=== PATIENT | female | born 1940 | race Two or more races ===

== ENCOUNTER 2019-06-17 19:41 | Inpatient (IN) | payer OTHER ==
[2019-06-17] MEDS ORDERED: dilTIAZem HCL 50 MG/10 ML - 10 ML VIAL IVPUSH ONE ×2 (20:06→20:26)
[2019-06-17] MEDS ORDERED: LACTATED RINGERS SOLUTION 1000 ML INFUS.BAG IV ONE (20:07)
--- NOTE | 2019-06-17 20:07 | PDOC ---
Attending Attestation - Resident Resident Name: Ezequiel Jaimes - ED Attending Attestation I have performed the following: I have examined & evaluated the patient, The case was reviewed & discussed with the resident, I agree w/resident's findings & plan - HPI HPI: 06/17/19 23:41 see resident hpi - Physicial Exam PE: 06/17/19 23:42 agree with resident exam - Critical Care Time Total Critical Care Time: 90 Critical Care Statement: The care of this patient involved high complexity decision making to prevent further life threatening deterioration of the patient 's condition and/or to evaluate & treat vital organ system(s) failure or risk of failure. - Medical Decision Making 06/17/19 23:42 79 yo female with sob, arrives in AF with RVR patient given Cardizem 15 mg prior to arrival with little effect Additional bolus of 15 mg was given upon arrival to the emergency department due to persistently elevated rate, patient had momentary decrease to approximately 80 bpm with decreased blood pressure of 88 systolic A small fluid bolus of 250 mL was given with rapid return to normal blood pressure chest x-barb well as CTA of the chest were performed which showedcongestive changes right side much more significant on the left with pleural effusions present There are no other indicators to suggest pneumoniaBNP is elevated Patient currently on a Cardizem drip at 5 mg an hour, Lasix 40 mg given IV pushfor gentle diuresis Patient currently on BiPAP due to increased work of breathing She is clinically improved though still somewhat labored Consult called to the ICU where patient will be admitted for further management Her family has been at the bedside and understands and agrees with the plan 06/17/19 23:42
[2019-06-17] MEDS ORDERED: dilTIAZem HCL 125 MG/25 ML - 25 ML VIAL ONE (20:10)
[2019-06-17] MEDS ORDERED: LACTATED RINGERS SOLUTION 1,000 ML/1,000 ML INFUS.BAG IV SCH (20:30)
[2019-06-17] MEDS ORDERED: methylPREDNISolone NA SUCC 125 MG/2 ML VIAL ONE (20:42)
[2019-06-17 20:54] LABS: BASO % 1.1 % (0-2.0); EOS % 2.1 % (0-4.5); HEMATOCRIT 37.4 % (32.4-45.2); HEMOGLOBIN 12.3 GM/dL (10.7-15.3); MCH 31.2 pg (25.7-33.7); MCHC 32.9 g/dl (32.0-36.0); MEAN CELL VOLUME 94.8 fl (80-96); MEAN PLT VOLUME 8.4 fl (7.5-11.1); MONO % 14.9 % (3.8-10.2); NEUT % 49.9 % (42.8-82.8); PLATELET COUNT 233 K/MM3 (134-434); RBC 3.95 M/mm3 (3.60-5.2); RDW 14.2 % (11.6-15.6); WHITE BLOOD COUNT 6.6 K/mm3 (4.0-10.0)
[2019-06-17] MEDS: DILTIAZEM INJECTION 125 MG in SODIUM CHLORIDE 100 ML IVPB SCH (20:56)
[2019-06-17] MEDS ORDERED: LEVALBUTEROL HCL 0.63 MG/3 ML VIAL.NEB. IH ONE (20:57)
[2019-06-17 21:19] LABS: MAGNESIUM 1.9 mg/dL (1.8-2.4); PHOSPHOROUS 2.8 mg/dL (2.5-4.9)
--- NOTE | 2019-06-17 21:20 | PDOC ---
History of Present Illness - General Chief Complaint: Shortness of Breath Stated Complaint: SHORTNESS OF BREATH Time Seen by Provider: 06/17/19 20:01 History Source: Patient, Family (Son, daughter, and grand daughter at bedside.) Exam Limitations: No Limitations - History of Present Illness Initial Comments: HPI: 79 y/o female presenting to [facility] ER complaining of shortness of breath and back pain. EMS reports the pt was found to be in a-fib with RVR. Was given 15mg of Diltiazem enroute with little improvement in her symptoms. History obtained from pt and multiple family members at bedside. Report the pt has been short of breath for the past month. Was prescribed an Albuterol inhaler by PCP which has not provided any relief. Denies coughing. No h/o of pulmonary pathology. Reports intermittent back pain started on Sunday. Started again today while walking to the bathroom. Denies trauma or other injury to the area. EMS was called because the pt self-reported her breathing became more difficult and the back pain became worse. Family denies known cardiac history. Has never been evaluated by a switchgear repairer Scheduled for outpatient echo later this week. Social Hx: - Tobacco: never smoker Medical Hx: - HTN - H/o DVT in right leg after knee surgery. Family believes either an IVF filter or a stent was placed in the leg. Believes occured in 2012. Review of Systems: In addition to that documented in the HPI above, the additional ROS was obtained : Constitutional- Endorses intermittent fevers over the past several days. Denies chills Head- Denies vision changes ENMT- Denies sore throat CV- Denies chest pain Resp- Endorses SOB GI- Denies vomiting or diarrhea - Denies painful urination MSK- Denies recent trauma Skin- Denies new rashes Neuro- Denies new numbness or tingling or weakness Endocrine- Denies polyuria Heme- Denies bleeding or bruising Physical Examination: Constitutional- Elderly adult female presenting with mild respiratory distress. Found semi-fowlers on hospital bed. Head- Normocephalic. No obvious external signs of trauma. Neck- Supple, trachea is midline. No JVD. Cardiovascular / Chest- Tachycardic with irregularly irregular rate and regular rhythm. No murmur, rubs, clicks, or gallops. Peripheral pulses- radial pulses full. 1+ pretibial edema bilaterally to mid shaft. Respiratory- Tachypneic with pursed lip breathing. Equal chest rise and fall. Decreased breath sounds in the right posterior field. Trace end expiratory wheezing. No rales or rhonchi. Gastrointestinal- abdomen is soft, non-tender, non-distended. Neuro- Alert and oriented x4. Moving all four extremities spontaneously. Skin- Warm, dry, and intact. Psych- Affect- appropriate. Mood- normal. MDM: *Reviewed vital signs, nursing notes, and prior visit documentation (if available). 79 y/o female presenting with rapid a-fib and SOB. Afebrile. Vitals remarkable for tachycardia to the 140s. Physical exam as described above. CXR remarkable for right sided pleural effusion with possible consolidation per ED wet read. Possible pneumonia versus acute CHF. Also ordered CTA to evaluate for possible PE given new arrhythmia. Also concerned for possible aortic dissection given back pain. Pt signed out to resident Dr. Carreno after he was verbally appraised of the pts HPI, current ED course, and plan of management. Will f/u on pending radiology and laboratory studies. Anticipate admission. Ezequiel Jaimes M.D., PGY2 Emergency Medicine Resident Past History - Past Medical History Allergies/Adverse Reactions: Allergies Allergy/AdvReac Type Severity Reaction Status Date / Time No Known Allergies Allergy Verified 06/17/19 19:42 Home Medications: Ambulatory Orders Acetaminophen [Tylenol .Regular Strength -] 650 mg PO Q6H PRN #0 tablet Pantoprazole Sodium [Protonix -] 40 mg PO BID #30 tablet.ec 06/23/13 COPD: No GI Disorders: Yes (GERD) HTN: Yes Hypercholesterolemia: Yes - Surgical History Orthopedic Surgery: (LT HIP SURGERY, LT KNEE REPLACEMENT) - Immunization History Immunization Up to Date: Yes - Psycho Social/Smoking Cessation Hx Smoking Status: No Smoking History: Never smoked Number of Cigarettes Smoked Daily: 0 Hx Alcohol Use: No Drug/Substance Use Hx: No Substance Use Type: None Hx Substance Use Treatment: No *Physical Exam - Vital Signs Last Vital Signs Temp Pulse Resp BP Pulse Ox 135 H 30 H 161/119 H 96 06/17/19 20:56 06/17/19 19:55 06/17/19 20:56 06/17/19 19:55 ED Treatment Course - LABORATORY CBC & Chemistry Diagram: 06/17/19 20:45 06/17/19 20:45 - ADDITIONAL ORDERS Additional order review: Laboratory Results 06/17/19 20:45 Phosphorus 2.8 Magnesium 1.9 06/17/19 20:45 RBC 3.95 MCV 94.8 MCHC 32.9 RDW 14.2 D MPV 8.4 Neutrophils % 49.9 Lymphocytes % 32.0 Monocytes % 14.9 H Eosinophils % 2.1 Basophils % 1.1 - RADIOLOGY Radiology Studies Ordered: Category Date Time Status CHEST CTA [CT] Stat CT Scan 06/17/19 20:26 Ordered CHEST X-RAY PORTABLE* [RAD] Stat Radiology 06/17/19 20:08 Taken - Medications Given in the ED: ED Medications Discontinued Medications Generic Name Dose Route Start Last Admin Trade Name Freq PRN Reason Stop Dose Admin Diltiazem HCl 150 mg 06/17/19 20:06 06/17/19 21:00 Cardizem Injection - IVPUSH 06/17/19 20:07 Not Given ONCE ONE Diltiazem HCl 15 mg 06/17/19 20:26 06/17/19 20:27 Cardizem Injection - IVPUSH 06/17/19 20:27 15 mg ONCE ONE Administration Lactated Ringer's 250 ml 06/17/19 20:07 06/17/19 20:27 Lactated Ringers Solution IV 06/17/19 20:08 250 ml ONCE ONE Administration Discharge - Discharge Information Problems reviewed: Yes Clinical Impression/Diagnosis: Rapid atrial fibrillation - Follow up/Referral Referrals: Ashley Calderón MD [Primary Care Provider] - - Patient Discharge Instructions - Post Discharge Activity
[2019-06-17 21:22] LABS: ALBUMIN 3.2 g/dl (3.4-5.0); BLOOD UREA NITROGEN 13.3 mg/dL (7-18); CALCIUM 9.3 mg/dL (8.5-10.1); POTASSIUM 3.6 mmol/L (3.5-5.1); TOT PROT 6.1 g/dl (6.4-8.2)
[2019-06-17] MEDS ORDERED: FUROSEMIDE 40 MG/4 ML INJECTABLE VIAL IVPUSH ONE (22:47)
--- NOTE | 2019-06-17 23:41 | PDOC ---
*Physical Exam - Vital Signs Last Vital Signs Temp Pulse Resp BP Pulse Ox 129 H 30 H 110/83 100 06/17/19 22:45 06/17/19 19:55 06/17/19 22:28 06/17/19 22:45 ED Treatment Course - LABORATORY CBC & Chemistry Diagram: 06/17/19 20:45 06/17/19 20:45 - ADDITIONAL ORDERS Additional order review: Laboratory Results 06/17/19 06/17/19 06/17/19 20:45 20:45 20:45 Sodium 142 Potassium 3.6 Chloride 112 H Carbon Dioxide 20 L Anion Gap 10 BUN 13.3 Creatinine 1.0 Est GFR (CKD-EPI)AfAm 61.19 Est GFR (CKD-EPI)NonAf 52.79 Random Glucose 106 Calcium 9.3 Phosphorus 2.8 Magnesium 1.9 Total Bilirubin 1.0 AST 27 ALT 17 Alkaline Phosphatase 102 Creatine Kinase Troponin I B-Natriuretic Peptide 3211.7 H Total Protein 6.1 L Albumin 3.2 L 06/17/19 20:45 Sodium Potassium Chloride Carbon Dioxide Anion Gap BUN Creatinine Est GFR (CKD-EPI)AfAm Est GFR (CKD-EPI)NonAf Random Glucose Calcium Phosphorus Magnesium Total Bilirubin AST ALT Alkaline Phosphatase Creatine Kinase 107 Troponin I 0.02 B-Natriuretic Peptide Total Protein Albumin 06/17/19 20:45 RBC 3.95 MCV 94.8 MCHC 32.9 RDW 14.2 D MPV 8.4 Neutrophils % 49.9 Lymphocytes % 32.0 Monocytes % 14.9 H Eosinophils % 2.1 Basophils % 1.1 - Medications Given in the ED: ED Medications Discontinued Medications Generic Name Dose Route Start Last Admin Trade Name Matthew PRN Reason Stop Dose Admin Diltiazem HCl 150 mg 06/17/19 20:06 06/17/19 21:00 Cardizem Injection - IVPUSH 06/17/19 20:07 Not Given ONCE ONE Diltiazem HCl 15 mg 06/17/19 20:26 06/17/19 20:27 Cardizem Injection - IVPUSH 06/17/19 20:27 15 mg ONCE ONE Administration Lactated Ringer's 250 ml 06/17/19 20:07 06/17/19 20:27 Lactated Ringers Solution IV 06/17/19 20:08 250 ml ONCE ONE Administration Medical Decision Making - Medical Decision Making 06/17/19 23:39 Pt signed out to me by Dr. Jaimes. 79F who presents with concern for CHF exacerbation. Chest CTA negative for PE and dissection but shows fluid overload. Pt has soft BP and currently on bipap for respiratory support. MAP 65. Pt endorsed to ICU resident, Dr. Rosales, for ICU admission - accept to ICU. Microblogged for admission. 06/18/19 01:[address] Rojo for hospitalist admission. Discharge - Discharge Information Problems reviewed: Yes Clinical Impression/Diagnosis: Rapid atrial fibrillation Condition: Guarded - Admission Yes - Follow up/Referral - Patient Discharge Instructions - Post Discharge Activity
[2019-06-17] MEDS ORDERED: HEPARIN NA (PORCINE) 5,000 UNITS/ML 1ML VIAL SQ SCH (23:45)
--- NOTE | 2019-06-17 23:56 | CONSULT ---
Consultation: REQUESTING PROVIDER: Dr. Carreno CONSULT REQUEST: We have been asked to medically evaluate this patient for new onset afib w/ RVR, tachypnea, labile BP. HISTORY OF PRESENT ILLNESS: 79 y/o F with PMH HTN, HLD, s/p DVT on coumadin (after knee sx), GERD, s/p hip replacement, IVC filter, bleeding peptic ulcer dz, ?asthma, who presented for acutely worsening SOB over the past 2-3 days. Per family at bedside, over the last month she has had worsening BARTHOLOMEW. At baseline, she is able to ambulate freely using her cane. However, this weekend, she had increased SOB as well as severe, sharp back pain which caused her family to call EMS today. Was found to be in afib with RVR into 130's by EMS, pt received 15mg cardiazem without improvement. In the ER, pt received an additional push of 15mg IVP cardiazem , lasix 40mg IVP, and bolus of LR 250cc as pt BP became labile ~80/50. She was also placed on BiPAP for work of breathing, as pt was tachypnea with RR into 30' s. Received medrol 125mg x1. Pt is admitted to ICU for new onset afib with RVR, labile BP and tachypnea. During this time, pt endorses use of an albuterol inhaler without relief, given by her PMD. Otherwise, without DYER, fever, chills, chest pain or pressure or changes in urinary or bowel function. No sick contacts. No recent hospitalizations. PMH: as above PsxH: s/p L hip replacement, L knee sx, IVC filter meds: Tylenol, amlodipine, omeprazole allergies: NKDA FH: denies SH: did not work outside of home, denies alcohol, cigarette, or recreational drug use REVIEW OF SYSTEMS: +back pain +SOB PHYSICAL EXAMINATION Vital Signs 06/17/19 06/17/19 06/17/19 19:55 20:56 21:20 Pulse Rate 135 H 135 H Pulse Rate [ Left Radial] Respiratory 30 H Rate Blood Pressure 118/79 161/119 H Blood Pressure [Right Arm] O2 Sat by Pulse 96 98 Oximetry (%) 06/17/19 06/17/19 22:28 22:45 Pulse Rate 129 H Pulse Rate [ 87 Left Radial] Respiratory Rate Blood Pressure Blood Pressure 110/83 [Right Arm] O2 Sat by Pulse 99 100 Oximetry (%) GENERAL: awake and alert, on BiPAP in mild distress HEAD: Normal with no signs of trauma. EYES: Pupils equal, round and reactive to light, extraocular movements intact, sclera anicteric, conjunctiva clear. EARS, NOSE, THROAT: Ears normal, nares patent, oropharynx clear without exudates. Moist mucous membranes. NECK: Normal range of motion, supple LUNGS: +bibasilar crackles. mild accessory m usage HEART: +irreg irreg rate, no r/m/g ABDOMEN: Soft, obese, nontender, not distended, normoactive bowel sounds LOWER EXTREMITIES: 2+ pt pulses, warm, well-perfused. No calf tenderness. Trace pedal edema NEUROLOGICAL: Cranial nerves II-XII intact. PSYCHIATRIC: Cooperative. SKIN: thin skin, bruising Laboratory Results - last 24 hr 06/17/19 06/17/19 06/17/19 20:45 20:45 20:45 WBC 6.6 RBC 3.95 Hgb 12.3 Hct 37.4 MCV 94.8 MCH 31.2 MCHC 32.9 RDW 14.2 D Plt Count 233 MPV 8.4 Absolute Neuts (auto) 3.3 Neutrophils % 49.9 Lymphocytes % 32.0 Monocytes % 14.9 H Eosinophils % 2.1 Basophils % 1.1 Nucleated RBC % 0 Sodium 142 Potassium 3.6 Chloride 112 H Carbon Dioxide 20 L Anion Gap 10 BUN 13.3 Creatinine 1.0 Est GFR (CKD-EPI)AfAm 61.19 Est GFR (CKD-EPI)NonAf 52.79 Random Glucose 106 Calcium 9.3 Phosphorus Magnesium Total Bilirubin 1.0 AST 27 ALT 17 Alkaline Phosphatase 102 Creatine Kinase 107 Troponin I 0.02 B-Natriuretic Peptide Total Protein 6.1 L Albumin 3.2 L 06/17/19 20:45 B-Natriuretic Peptide 3211.7 H ABG 04/16/13 20:30 ABG pH 7.40 ABG pCO2 at Pt Temp 35.2 ABG pO2 at Pt Temp 96.8 ABG HCO3 21.2 L ABG O2 Sat (Measured) 98.3 ABG O2 Content 17.7 Chest CTA: no evidence of PE. +small to moderate R sided, v small L sided pleural effusion, mild bilateral flank subcutaneous edema suggesting vol overload. Development of bilateral upper and lower lobe opacities suggestive of infiltrates EKG: +afib w/ RVR vent rate 137ms, qtc 480ms ASSESSMENT/PLAN: 79 y/o F with PMH HTN, HLD, s/p DVT on coumadin (after knee sx), GERD, s/p hip replacement, IVC filter, bleeding peptic ulcer dz, ?asthma, who presented for acutely worsening SOB over the past 2-3 days. Pt is admitted to ICU for new onset afib with RVR, labile BP and tachypnea. #Neuro -AAO x 3 ; intact #Cardio New onset afib w/ RVR -possible 2/2 valvular issue, hyperthyroid -f/u ECHO, TSH -c/w cardiazem gtt. can give IVP if cont to be uncontrolled, should also improve w/ lasix -CHADSVASC : 6; would start on a/c however pt with hx of bleeding peptic ulcer 2012. need to weigh risks and benefits. -K>4, Mg>2 -cardio consult: Dr. Mata New onset CHF likely 2/2 afib w/ RVR -with elevated BNP ~3200, pl eff R>L -will diurese with lasix 40mg IVP qd as pt lasix naive -daily wt, i/o, na control 2g -f/u AM CXR #Pulm Tachypnea likely 2/2 new onset CHF -c/w BiPAP for work of breathing -ABG without hypercapnia or hypoxemia -less likely infectious process. without leukocytosis, afebrile, w/o cough will not give abx at this time -CTA (-) for PE #Heme hx DVT -has IVC filter -hx of bleeding peptic ulcer dz. weigh risks and benefits a/c -f/u duplex LE #F/E/N no IVF at this time as w/ CHF continue to follow lytes NPO while on BiPAP #PPX DVT: w/ hx of bleed no chemical ppx at this time #Dispo admit to ICU Dispo: We will continue to follow the patient. Thank you for this consultative opportunity. Visit type - Emergency Visit Emergency Visit: Yes ED Registration Date: 06/17/19 Care time: The patient presented to the Emergency Department on the above date and was hospitalized for further evaluation of their emergent condition. - New Patient This patient is new to me today: Yes Date on this admission: 06/18/19 - Critical Care Critical Care patient: Yes Total Critical Care Time (in minutes): 45 Critical Care Statement: The care of this patient involved high complexity decision making to prevent further life threatening deterioration of the patient 's condition and/or to evaluate & treat vital organ system(s) failure or risk of failure.
[2019-06-18 00:45] LABS: ARTERIAL BLD GAS O2 SATURATION 98.3 % (95-98); ARTERIAL BLOOD GAS BASE EXCESS -3.6 meq/l (-2-2); ARTERIAL BLOOD GAS PCO2 32.5 mmHg (35-45); ARTERIAL BLOOD GAS PO2 119 mmHg (80-100); CARBOXYHEMOGLOBIN 0.8 % (0-2)
[2019-06-18 00:46] LABS: ALLENS TEST POSITIVE
[2019-06-18] MEDS ORDERED: FUROSEMIDE 40 MG/4 ML INJECTABLE VIAL ONE (00:53)
--- NOTE | 2019-06-18 01:12 | PN ---
Teaching Attending Note Name of Resident: Yumiko Rojo ATTENDING PHYSICIAN STATEMENT I saw and evaluated the patient. I reviewed the resident's note and discussed the case with the resident. I agree with the resident's findings and plan as documented. SUBJECTIVE: Patient is an 79 year old woman with PMH of HLD, DVT after left knee surgery ( used to be on coumadin), GERD, Left hip replacement, IVC filter, Bleeding peptic ulcer disease and Asthma, who presents with worsening SOB over the past 2 -3 days. Per family at bedside, over the last month she has had worsening BARTHOLOMEW. At baseline, she is able to ambulate freely using her cane. However, this weekend, she had increased SOB as well as severe, sharp back pain which caused her family to call EMS today. Was found to be in Afib with RVR into 130's by EMS , who gave her 15mg cardiazem without improvement. In the ER, pt received an additional push of 15mg IVP cardiazem lasix 40mg IVP , and bolus of LR 250cc as her BP dropped toe ~80/50. She was also placed on BiPAP for severe distress and received Solumedrol 125mg, started on Cardiazem drip and is being transferred to the ICU. She used albuterol inhaler without relief. has had back pain. Denies headache, fever, chills, chest pain, dysuria, frequency, diarrhea or vomiting. No sick contacts, recent travel or hospitalizations. Nonsmoker. Denies alcohol abuse or illicit drug use. OBJECTIVE: Alert and on BiPAP Vital Signs Period Temp Pulse Resp BP Sys/Brown Pulse Ox Last 24 Hr 87-135 30-30 110-161/79-119 96-100 HEENT: No Jaundice, eye redness or discharge, PERRLA, EOMI. Normocephalic, atraumatic. External ears are normal and hearing is grossly intact. No nasal discharge. Neck: Supple, nontender. No palpable adenopathy or thyromegaly. No JVD Chest: Good effort. Clear to auscultation and percussion. Heart: Irregularly irregular. No S3, rub or murmur Abdomen: Not distended, soft, nontender and no HSM. No rebound or guarding. Normal bowel sounds. Ext: Peripheral pulses intact. Leg edema. Skin: Warm and dry. No petechiae, rash or ecchymosis. Neuro: Alert. Oriented x3. CN 2-12 grossly intact. Sensation grossly intact in all four extremities and DTR are symmetric. Psych: Appropriate mood and affect. Good insight. Current Medications Generic Name Dose Route Start Last Admin Trade Name Freq PRN Reason Stop Dose Admin Chlorhexidine Gluconate 1 applic 06/18/19 22:00 Hibiclens For Decolonization - TP HS SU Furosemide 40 mg 06/18/19 10:00 Lasix Injection - IVPUSH DAILY SU Diltiazem HCl 125 mg/ Sodium 125 mls @ 5 mls/hr 06/17/19 20:15 06/17/19 20:56 Chloride IVPB 5 mg/hr TITR SU 5 mls/hr Administration Protocol 5 MG/HR Mupirocin 1 applic 06/18/19 10:00 Bactroban Ointment (For Decolonization) - NS 06/23/19 09:59 BID SU Home Medications Medication Instructions Recorded Acetaminophen [Tylenol .Regular 650 mg PO Q6H PRN #0 tablet 06/23/13 Strength -] Pantoprazole Sodium [Protonix -] 40 mg PO BID #30 tablet.ec 06/23/13 Abnormal Lab Results 06/17/19 06/17/19 06/17/19 20:45 20:45 20:45 Monocytes % 14.9 H ABG pCO2 at Pt Temp ABG pO2 at Pt Temp ABG HCO3 ABG O2 Sat (Measured) ABG Base Excess Chloride 112 H Carbon Dioxide 20 L B-Natriuretic Peptide 3211.7 H Total Protein 6.1 L Albumin 3.2 L 06/18/19 00:00 Monocytes % ABG pCO2 at Pt Temp 32.5 L ABG pO2 at Pt Temp 119 H ABG HCO3 19.9 L ABG O2 Sat (Measured) 98.3 H ABG Base Excess -3.6 L Chloride Carbon Dioxide B-Natriuretic Peptide Total Protein Albumin ASSESSMENT AND PLAN: 1. New onset Afib/CHF and Acute hypoxic respiratory failure - Will diurese with IV lasix if BP improves. Will wean off BiPAP once she is effectively diuresed. Continue IV cardiazem and add PO cardiazem if BP improves. CXR shows cardiomegaly, pulmonary congestion and right lung fluffy infiltrates and pleural effusion (R>L). Chest CT didnot show pulmonary embolism; mild bliateral flank subcutaneous edema is noted. Will get ECHO, TSH, leg doppler, restrict dietary salt intake, get daily weight and consult cardiology and pulmonary. Give protonix. EKG shows Afib with a rate of [address]-T wave changes. Will repeat EKG and troponin when rate improves. [id number] score is 6. Before starting anticoagulation, will contact her cardilogist/PCP during the day to clarify the circumstances surrounding her past episode of peptic ulcer bleeding and discontinuation of coumadin. Will continue comprehensive care for all of patients comorbid conditions. 2. Hypoalbuminemia - Possibly due to combined effects of malnutrition and inflammation associated with comorbid chronic conditions. Will ensure adequate dietary protein intake and also consult lute packer or applier. 3. DVT prophylaxis - Lovenox 40 mg SQ q 24 hours. 4. Advance directives - Full code
[2019-06-18 04:12] LABS: URINE APPEARANCE CLEAR; URINE BILIRUBIN NEGATIVE (NEGATIVE); URINE COLOR YELLOW; URINE GLUCOSE (UA) NEGATIVE (NEGATIVE); URINE KETONE NEGATIVE (NEGATIVE); URINE LEUK ESTERASE NEGATIVE (NEGATIVE); URINE NITRITE NEGATIVE (NEGATIVE); URINE PROTEIN NEGATIVE (NEGATIVE); URINE UROBILINOGEN 0.2 mg/dL (0.2-1.0)
--- NOTE | 2019-06-18 04:16 | HP ---
CHIEF COMPLAINT: shortness of breath PCP: non- [facility] Dr. Calderón HISTORY OF PRESENT ILLNESS: 79 y.o. F PMH HTN, HLD, GERD, prior DVT, peptic ulcer disease, asthma presenting with progressively worsening dyspnea on exertion for 2-3 days duration. Pt says that she has never felt this SOB in the past. She tried her home nebulizers for her asthma to help with the SOB but had no improvement of symptoms. Patient also c/o sharp 9/10 back pain that has been present since . En route to the hospital EMS noted pt was in A-fib w/ RVR in the 130s and -- subsequently gave 15mg Cardizem with no change in status. In the ED, patient given another 15mg Cardizem IV, Lasix 40mg IV, medrol 125mg and LR 250mL bolus d/t BP drop to 80s/50s with improvement of symptoms. On ROS denies CP/ DYER/ fevers/ chills/ nausea/ vomiting/ urinary changes/bowel changes/ wt changes. ER course was notable for: (1) CXR: congestion R>L & pleural effusions (2) Chest CTA: No PE, no aortic aneurysm dissection (3) tachy to 135; afebrile Recent Travel: denies PAST MEDICAL HISTORY: as per HPI PAST SURGICAL HISTORY: L hip replacement, IVC filter, L knee surgery Social History: lives alone. At baseline pt is able to ambulate w/ walker. Smoking:denies Alcohol:denies Drugs: denies Allergies No Known Allergies Allergy (Verified 06/17/19 19:42) HOME MEDICATIONS: Home Medications Medication Instructions Recorded Acetaminophen [Tylenol .Regular 650 mg PO Q6H PRN #0 tablet 06/23/13 Strength -] Pantoprazole Sodium [Protonix -] 40 mg PO BID #30 tablet.ec 06/23/13 Amlodipine Besylate [Norvasc -] 10 mg PO DAILY 06/18/19 REVIEW OF SYSTEMS CONSTITUTIONAL: Absent: fever, chills, diaphoresis, generalized weakness, malaise, loss of appetite, weight change HEENT: Absent: rhinorrhea, nasal congestion, throat pain, throat swelling, difficulty swallowing, mouth swelling, ear pain, eye pain, visual changes CARDIOVASCULAR: Absent: chest pain, syncope, palpitations, irregular heart rate, lightheadedness , peripheral edema RESPIRATORY: Absent: cough, shortness of breath, dyspnea with exertion, orthopnea, wheezing, stridor, hemoptysis GASTROINTESTINAL: Absent: abdominal pain, abdominal distension, nausea, vomiting, diarrhea, constipation, melena, hematochezia GENITOURINARY: Absent: dysuria, frequency, urgency, hesitancy, hematuria, flank pain, genital pain MUSCULOSKELETAL: Absent: myalgia, arthralgia, joint swelling, back pain, neck pain SKIN: Absent: rash, itching, pallor HEMATOLOGIC/IMMUNOLOGIC: Absent: easy bleeding, easy bruising, lymphadenopathy, frequent infections ENDOCRINE: Absent: unexplained weight gain, unexplained weight loss, heat intolerance, cold intolerance NEUROLOGIC: Absent: headache, focal weakness or paresthesias, dizziness, unsteady gait, seizure, mental status changes, bladder or bowel incontinence PSYCHIATRIC: Absent: anxiety, depression, suicidal or homicidal ideation, hallucinations. PHYSICAL EXAMINATION Vital Signs - 24 hr 06/17/19 06/17/19 06/17/19 19:55 20:56 21:00 Pulse Rate 135 H 135 H Pulse Rate [ 128 H Left Radial] Respiratory 30 H 33 H Rate Blood Pressure 118/79 161/119 H Blood Pressure 161/119 H [Right Arm] O2 Sat by Pulse 96 95 Oximetry (%) 06/17/19 06/17/19 06/17/19 21:20 22:28 22:30 Pulse Rate Pulse Rate [ 87 127 H Left Radial] Respiratory 27 H Rate Blood Pressure Blood Pressure 110/83 116/72 [Right Arm] O2 Sat by Pulse 98 99 Oximetry (%) 06/17/19 06/18/19 06/18/19 22:45 01:02 02:48 Pulse Rate 129 H Pulse Rate [ 123 H Left Radial] Respiratory 30 H Rate Blood Pressure Blood Pressure 120/80 [Right Arm] O2 Sat by Pulse 100 100 100 Oximetry (%) 06/18/19 06/18/19 02:50 03:34 Pulse Rate 133 H Pulse Rate [ 133 H Left Radial] Respiratory 26 H Rate Blood Pressure Blood Pressure 115/84 [Right Arm] O2 Sat by Pulse 100 99 Oximetry (%) GENERAL: Awake, alert, and fully oriented, in no acute distress. Bipap in place. HEENT: Fundoscopy exam WNL LUNGS: Breath sounds heard through bipap sounds, no wheezing/ crackles/ rhonchi / rales appreciated on lung exam. HEART: Regular rate and rhythm, normal S1 and S2 without murmur, rub or gallop. ABDOMEN: Soft, nontender, not distended, normoactive bowel sounds, no guarding, no rebound, no masses. No hepatomegaly or splenomegaly. EXTR: 2+ pulses palpated b/l UE & LE. LE 1+ pitting edema R>L. B/l LE calf tenderness noted PSYCHIATRIC: Cooperative. Good eye contact. Appropriate mood and affect. Laboratory Results - last 24 hr 06/17/19 06/17/19 06/17/19 20:45 20:45 20:45 WBC 6.6 RBC 3.95 Hgb 12.3 Hct 37.4 MCV 94.8 MCH 31.2 MCHC 32.9 RDW 14.2 D Plt Count 233 MPV 8.4 Absolute Neuts (auto) 3.3 Neutrophils % 49.9 Lymphocytes % 32.0 Monocytes % 14.9 H Eosinophils % 2.1 Basophils % 1.1 Nucleated RBC % 0 Anticoagulation Therapy Puncture Site ABG pH ABG pCO2 at Pt Temp ABG pO2 at Pt Temp ABG HCO3 ABG O2 Sat (Measured) ABG O2 Content ABG Base Excess Adebayo Test Carboxyhemoglobin Methemoglobin O2 Delivery Device Oxygen Flow Rate Vent Mode Vent Rate Mechanical Rate Pressure Support Vent Sodium 142 Potassium 3.6 Chloride 112 H Carbon Dioxide 20 L Anion Gap 10 BUN 13.3 Creatinine 1.0 Est GFR (CKD-EPI)AfAm 61.19 Est GFR (CKD-EPI)NonAf 52.79 Random Glucose 106 Lactic Acid Calcium 9.3 Phosphorus Magnesium Total Bilirubin 1.0 AST 27 ALT 17 Alkaline Phosphatase 102 Creatine Kinase 107 Troponin I 0.02 B-Natriuretic Peptide Total Protein 6.1 L Albumin 3.2 L 06/17/19 06/17/19 06/18/19 20:45 20:45 00:00 WBC RBC Hgb Hct MCV MCH MCHC RDW Plt Count MPV Absolute Neuts (auto) Neutrophils % Lymphocytes % Monocytes % Eosinophils % Basophils % Nucleated RBC % Anticoagulation Therapy No Result Required. Puncture Site Left radial ABG pH 7.40 ABG pCO2 at Pt Temp 32.5 L ABG pO2 at Pt Temp 119 H ABG HCO3 19.9 L ABG O2 Sat (Measured) 98.3 H ABG O2 Content 16.1 ABG Base Excess -3.6 L Adebayo Test Positive Carboxyhemoglobin 0.8 Methemoglobin < 1.0 O2 Delivery Device Bipap Oxygen Flow Rate 50 Vent Mode S/t Vent Rate 18 Mechanical Rate No Result Required. Pressure Support Vent 10/4 Sodium Potassium Chloride Carbon Dioxide Anion Gap BUN Creatinine Est GFR (CKD-EPI)AfAm Est GFR (CKD-EPI)NonAf Random Glucose Lactic Acid Calcium Phosphorus 2.8 Magnesium 1.9 Total Bilirubin AST ALT Alkaline Phosphatase Creatine Kinase Troponin I B-Natriuretic Peptide 3211.7 H Total Protein Albumin 06/18/19 01:51 WBC RBC Hgb Hct MCV MCH MCHC RDW Plt Count MPV Absolute Neuts (auto) Neutrophils % Lymphocytes % Monocytes % Eosinophils % Basophils % Nucleated RBC % Anticoagulation Therapy Puncture Site ABG pH ABG pCO2 at Pt Temp ABG pO2 at Pt Temp ABG HCO3 ABG O2 Sat (Measured) ABG O2 Content ABG Base Excess Adebayo Test Carboxyhemoglobin Methemoglobin O2 Delivery Device Oxygen Flow Rate Vent Mode Vent Rate Mechanical Rate Pressure Support Vent Sodium Potassium Chloride Carbon Dioxide Anion Gap BUN Creatinine Est GFR (CKD-EPI)AfAm Est GFR (CKD-EPI)NonAf Random Glucose Lactic Acid 1.7 Calcium Phosphorus Magnesium Total Bilirubin AST ALT Alkaline Phosphatase Creatine Kinase Troponin I B-Natriuretic Peptide Total Protein Albumin ASSESSMENT/PLAN: 79 y.o. 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 Mata) -Dr. Orozco ([facility])-- pt under ICU monitoring #New onset A-fib -EKG shows A-fib w/ rate 137;; F/u repeat AM EKG & repeat trop -C/w cardizem -[id number] score 6 -F/u cardio recs (Dr. Mata consulted) #Hx of DVT -hold anticoagulation-- pt was recently taken off coumadin by her PCP-- follow up w/ PCP regarding why it was d/c'd prior to inpatient anticoagulation -F/u LE duplex U/S #Back pain -CTA done ruled out AA dissection -Pain improving, continue to monitor #HTN -C/w home meds (amlodipine 10mg daily) #HLD -Pt takes no anti HLD meds -Consider lipid profile -F/u w/ PCP outpatient once discharged #GERD -Pantoprazole 40mg IV daily #PUD -No signs of active bleeding -No GI upset -c/w protonix #Asthma -C/w home med alb nub #FEN -No standing fluids -trend lytes -Na controlled diet #DVT PPX -Holding AC in setting of recent coumadin d/c by PCP -early ambulation #Dispo ICU monitoring Visit type - Emergency Visit Emergency Visit: Yes ED Registration Date: 06/17/19 Care time: The patient presented to the Emergency Department on the above date and was hospitalized for further evaluation of their emergent condition. - New Patient This patient is new to me today: Yes Date on this admission: 06/18/19 - Critical Care Critical Care patient: Yes Total Critical Care Time (in minutes): 37 Critical Care Statement: The care of this patient involved high complexity decision making to prevent further life threatening deterioration of the patient 's condition and/or to evaluate & treat vital organ system(s) failure or risk of failure. ATTENDING PHYSICIAN STATEMENT I saw and evaluated the patient. I reviewed the resident's note and discussed the case with the resident. I agree with the resident's findings and plan as documented. SUBJECTIVE: OBJECTIVE: ASSESSMENT AND PLAN:
[2019-06-18 06:30] LABS: BASO % 0.1 % (0-2.0); HEMATOCRIT 34.2 % (32.4-45.2); HEMOGLOBIN 11.5 GM/dL (10.7-15.3); LYMPH % 16.1 % (8-40); MCH 31.3 pg (25.7-33.7); MCHC 33.5 g/dl (32.0-36.0); MEAN CELL VOLUME 93.4 fl (80-96); MEAN PLT VOLUME 8.5 fl (7.5-11.1); MONO % 1.5 % (3.8-10.2); NEUT % 82.3 % (42.8-82.8); PLATELET COUNT 230 K/MM3 (134-434); RBC 3.66 M/mm3 (3.60-5.2); RDW 13.8 % (11.6-15.6); WHITE BLOOD COUNT 3.8 K/mm3 (4.0-10.0)
[2019-06-18 07:12] LABS: MAGNESIUM 1.8 mg/dL (1.8-2.4); PHOSPHOROUS 3.9 mg/dL (2.5-4.9)
[2019-06-18] MEDS: DILTIAZEM INJECTION 125 MG in SODIUM CHLORIDE 100 ML IVPB SCH (09:10)
--- NOTE | 2019-06-18 10:29 | PN ---
Progress Note (short form) - Note Progress Note: Pt examined events noted wants to remove her rush Vital Signs - 24 hr 06/17/19 06/17/19 06/17/19 19:55 20:56 21:00 Temperature Pulse Rate 135 H 135 H Pulse Rate [ 128 H Left Radial] Respiratory 30 H 33 H Rate Blood Pressure 118/79 161/119 H Blood Pressure 161/119 H [Right Arm] O2 Sat by Pulse 96 95 Oximetry (%) 06/17/19 06/17/19 06/17/19 21:20 22:28 22:30 Temperature Pulse Rate Pulse Rate [ 87 127 H Left Radial] Respiratory 27 H Rate Blood Pressure Blood Pressure 110/83 116/72 [Right Arm] O2 Sat by Pulse 98 99 Oximetry (%) 06/17/19 06/18/19 06/18/19 22:45 01:02 02:48 Temperature Pulse Rate 129 H Pulse Rate [ 123 H Left Radial] Respiratory 30 H Rate Blood Pressure Blood Pressure 120/80 [Right Arm] O2 Sat by Pulse 100 100 100 Oximetry (%) 06/18/19 06/18/19 06/18/19 02:50 03:10 03:15 Temperature 98.5 F Pulse Rate 128 H 133 H Pulse Rate [ 133 H Left Radial] Respiratory 26 H 27 H Rate Blood Pressure 114/73 115/88 Blood Pressure 115/84 [Right Arm] O2 Sat by Pulse 100 99 Oximetry (%) 06/18/19 06/18/19 06/18/19 03:34 04:00 04:28 Temperature Pulse Rate 133 H 125 H Pulse Rate [ Left Radial] Respiratory 21 H Rate Blood Pressure 108/86 Blood Pressure [Right Arm] O2 Sat by Pulse 99 98 Oximetry (%) 06/18/19 06/18/19 06/18/19 05:00 06:00 06:13 Temperature Pulse Rate 133 H 127 H 125 H Pulse Rate [ Left Radial] Respiratory 23 H 27 H Rate Blood Pressure 115/88 114/86 114/86 Blood Pressure [Right Arm] O2 Sat by Pulse Oximetry (%) 06/18/19 09:10 Temperature Pulse Rate 122 H Pulse Rate [ Left Radial] Respiratory Rate Blood Pressure 104/81 Blood Pressure [Right Arm] O2 Sat by Pulse Oximetry (%) Current Medications Generic Name Dose Route Start Last Admin Trade Name Freq PRN Reason Stop Dose Admin Chlorhexidine Gluconate 1 applic 10/02/19 22:00 Hibiclens For Decolonization - TP HS SU Furosemide 40 mg 06/18/19 10:00 Lasix Injection - IVPUSH DAILY SU Diltiazem HCl 125 mg/ Sodium 125 mls @ 5 mls/hr 06/17/19 20:15 06/18/19 09:10 Chloride IVPB 15 mg/hr TITR SU 15 mls/hr Administration Protocol 5 MG/HR Mupirocin 1 applic 06/18/19 10:00 Bactroban Ointment (For Decolonization) - NS 06/23/19 09:59 BID SU Pantoprazole Sodium 40 mg 06/18/19 10:00 Protonix Iv IVPUSH DAILY SU Laboratory Results - last 24 hr 06/17/19 06/17/19 06/17/19 20:45 20:45 20:45 WBC 6.6 RBC 3.95 Hgb 12.3 Hct 37.4 MCV 94.8 MCH 31.2 MCHC 32.9 RDW 14.2 D Plt Count 233 MPV 8.4 Absolute Neuts (auto) 3.3 Neutrophils % 49.9 Lymphocytes % 32.0 Monocytes % 14.9 H Eosinophils % 2.1 Basophils % 1.1 Nucleated RBC % 0 Anticoagulation Therapy Puncture Site ABG pH ABG pCO2 at Pt Temp ABG pO2 at Pt Temp ABG HCO3 ABG O2 Sat (Measured) ABG O2 Content ABG Base Excess Adebayo Test Carboxyhemoglobin Methemoglobin O2 Delivery Device Oxygen Flow Rate Vent Mode Vent Rate Mechanical Rate Pressure Support Vent Sodium 142 Potassium 3.6 Chloride 112 H Carbon Dioxide 20 L Anion Gap 10 BUN 13.3 Creatinine 1.0 Est GFR (CKD-EPI)AfAm 61.19 Est GFR (CKD-EPI)NonAf 52.79 Random Glucose 106 Lactic Acid Calcium 9.3 Phosphorus Magnesium Total Bilirubin 1.0 AST 27 ALT 17 Alkaline Phosphatase 102 Creatine Kinase 107 Troponin I 0.02 B-Natriuretic Peptide Total Protein 6.1 L Albumin 3.2 L TSH Urine Color Urine Appearance Urine pH Ur Specific Romeo Urine Protein Urine Glucose (UA) Urine Ketones Urine Blood Urine Nitrite Urine Bilirubin Urine Urobilinogen Ur Leukocyte Esterase 06/17/19 06/17/19 06/18/19 20:45 20:45 00:00 WBC RBC Hgb Hct MCV MCH MCHC RDW Plt Count MPV Absolute Neuts (auto) Neutrophils % Lymphocytes % Monocytes % Eosinophils % Basophils % Nucleated RBC % Anticoagulation Therapy No Result Required. Puncture Site Left radial ABG pH 7.40 ABG pCO2 at Pt Temp 32.5 L ABG pO2 at Pt Temp 119 H ABG HCO3 19.9 L ABG O2 Sat (Measured) 98.3 H ABG O2 Content 16.1 ABG Base Excess -3.6 L Adebayo Test Positive Carboxyhemoglobin 0.8 Methemoglobin < 1.0 O2 Delivery Device Bipap Oxygen Flow Rate 50 Vent Mode S/t Vent Rate 18 Mechanical Rate No Result Required. Pressure Support Vent 10/ Sodium Potassium Chloride Carbon Dioxide Anion Gap BUN Creatinine Est GFR (CKD-EPI)AfAm Est GFR (CKD-EPI)NonAf Random Glucose Lactic Acid Calcium Phosphorus 2.8 Magnesium 1.9 Total Bilirubin AST ALT Alkaline Phosphatase Creatine Kinase Troponin I B-Natriuretic Peptide 3211.7 H Total Protein Albumin TSH Urine Color Urine Appearance Urine pH Ur Specific Romeo Urine Protein Urine Glucose (UA) Urine Ketones Urine Blood Urine Nitrite Urine Bilirubin Urine Urobilinogen Ur Leukocyte Esterase 06/18/19 06/18/19 06/18/19 01:51 01:51 04:00 WBC RBC Hgb Hct MCV MCH MCHC RDW Plt Count MPV Absolute Neuts (auto) Neutrophils % Lymphocytes % Monocytes % Eosinophils % Basophils % Nucleated RBC % Anticoagulation Therapy Puncture Site ABG pH ABG pCO2 at Pt Temp ABG pO2 at Pt Temp ABG HCO3 ABG O2 Sat (Measured) ABG O2 Content ABG Base Excess Adebayo Test Carboxyhemoglobin Methemoglobin O2 Delivery Device Oxygen Flow Rate Vent Mode Vent Rate Mechanical Rate Pressure Support Vent Sodium Potassium Chloride Carbon Dioxide Anion Gap BUN Creatinine Est GFR (CKD-EPI)AfAm Est GFR (CKD-EPI)NonAf Random Glucose Lactic Acid 1.7 Calcium Phosphorus Magnesium Total Bilirubin AST ALT Alkaline Phosphatase Creatine Kinase Troponin I B-Natriuretic Peptide Total Protein Albumin TSH 3.41 Urine Color Yellow Urine Appearance Clear Urine pH 6.0 Ur Specific Romeo 1.035 Urine Protein Negative Urine Glucose (UA) Negative Urine Ketones Negative Urine Blood Negative Urine Nitrite Negative Urine Bilirubin Negative Urine Urobilinogen 0.2 Ur Leukocyte Esterase Negative 06/18/19 06/18/19 06/18/19 05:40 05:45 05:45 WBC 3.8 L RBC 3.66 Hgb 11.5 Hct 34.2 MCV 93.4 MCH 31.3 MCHC 33.5 RDW 13.8 Plt Count 230 MPV 8.5 Absolute Neuts (auto) 3.2 Neutrophils % 82.3 D Lymphocytes % 16.1 D Monocytes % 1.5 L D Eosinophils % 0.0 D Basophils % 0.1 Nucleated RBC % 3 H Anticoagulation Therapy Puncture Site ABG pH ABG pCO2 at Pt Temp ABG pO2 at Pt Temp ABG HCO3 ABG O2 Sat (Measured) ABG O2 Content ABG Base Excess Adebayo Test Carboxyhemoglobin Methemoglobin O2 Delivery Device Oxygen Flow Rate Vent Mode Vent Rate Mechanical Rate Pressure Support Vent Sodium Potassium Chloride Carbon Dioxide Anion Gap BUN Creatinine Est GFR (CKD-EPI)AfAm Est GFR (CKD-EPI)NonAf Random Glucose Lactic Acid Calcium Phosphorus 3.9 Magnesium 1.8 Total Bilirubin AST ALT Alkaline Phosphatase Creatine Kinase Troponin I < 0.02 B-Natriuretic Peptide Total Protein Albumin TSH Urine Color Urine Appearance Urine pH Ur Specific Romeo Urine Protein Urine Glucose (UA) Urine Ketones Urine Blood Urine Nitrite Urine Bilirubin Urine Urobilinogen Ur Leukocyte Esterase S1 S2 irregular Lungs decreased,crackles+ Abd-soft, NT edema+ PLAN spoke with ICU team will be dc Cardizem drip and change to PO start on eliquis BID Cardiology eval will keep rush for one more day -- pt agreed continue Lasix check daily weight and output ok to transfer to tele Problem List - Problems (1) Acute decompensated heart failure Code(s): I50.9 - HEART FAILURE, UNSPECIFIED (2) Rapid atrial fibrillation Code(s): I48.91 - UNSPECIFIED ATRIAL FIBRILLATION
[2019-06-18] MEDS: FUROSEMIDE 40 MG/4 ML INJECTABLE VIAL IVPUSH SCH (10:41)
[2019-06-18] MEDS: PANTOPRAZOLE SODIUM 40 MG VIAL IVPUSH SCH (10:41)
[2019-06-18] MEDS: MUPIROCIN 2% TOPICAL OINTMENT FOR DECOLONIZATION NS SCH ×2 (10:42→21:02)
[2019-06-18] MEDS: dilTIAZem HCL 60 MG TABLET (FP) PO SCH ×2 (11:00→18:17)
[2019-06-18] MEDS: APIXABAN 5 MG TABLET PO SCH ×2 (11:00→21:02)
--- NOTE | 2019-06-18 11:31 | EKG ---
Test Reason : Blood Pressure : / mmHG Vent. Rate : 137 BPM Atrial Rate : 092 BPM P-R Int : 000 ms QRS Dur : 074 ms QT Int : 318 ms P-R-T Axes : 000 019 -61 degrees QTc Int : 480 ms POOR DATA QUALITY, INTERPRETATION MAY BE ADVERSELY AFFECTED ATRIAL FIBRILLATION WITH RAPID VENTRICULAR RESPONSE ABNORMAL ECG WHEN COMPARED WITH ECG OF 15-JUN-2013 10:49, PREVIOUS ECG HAS UNDETERMINED RHYTHM, NEEDS REVIEW ST NOW DEPRESSED IN INFERIOR LEADS NONSPECIFIC T WAVE ABNORMALITY NOW EVIDENT IN ANTERIOR LEADS Confirmed by DWAYNE HOUSE, JOHNNY ([id number]) on 06/18/2019 11:31:00 AM Referred By: Confirmed By:JOHNNY RICE MD
--- NOTE | 2019-06-18 12:05 | PN ---
Teaching Attending Note Name of Resident: Luna Rosas ATTENDING PHYSICIAN STATEMENT I saw and evaluated the patient. I reviewed the resident's note and discussed the case with the resident. I agree with the resident's findings and plan as documented. SUBJECTIVE: Pt seen and examined in the ICU. Breathing better today. Denies chest pain. Remains on cardizem gtt. c/o rush. OBJECTIVE: Vital Signs Period Temp Pulse Resp BP Sys/Brown Pulse Ox Last 24 Hr 98.5 F 87-135 21-35 104-161/72-119 95-100 Intake & Output 06/15/19 06/16/19 06/17/19 06/18/19 23:59 23:59 23:59 23:59 Intake Total 40 Output Total 1200 Balance -1160 Weight 68.039 kg 67.449 kg Gen: NAD at rest Heart: irregular Lung: decreased breath sounds at the bases Abd: soft, nontender Ext: no edema CBC, BMP 06/18/19 05:40 06/17/19 20:45 Active Medications Apixaban (Eliquis -) 5 mg PO BID [facility] Last Admin: 06/18/19 11:00 Dose: 5 mg Chlorhexidine Gluconate (Hibiclens For Decolonization -) 1 applic TP HS [facility] Diltiazem HCl (Cardizem -) 60 mg PO Q6HPO [facility] Last Admin: 06/18/19 11:00 Dose: 60 mg Furosemide (Lasix Injection -) 40 mg IVPUSH DAILY [facility] Last Admin: 06/18/19 10:41 Dose: 40 mg Mupirocin (Bactroban Ointment (For Decolonization) -) 1 applic NS BID [facility] Stop: 06/23/19 09:59 Last Admin: 06/18/19 10:42 Dose: 1 applic Pantoprazole Sodium (Protonix Iv) 40 mg IVPUSH DAILY [facility] Last Admin: 06/18/19 10:41 Dose: 40 mg ASSESSMENT AND PLAN: New Onset Atrial Fibrillation with RVR Acute Diastolic Heart Failure h/o DVT s/p IVC filter HTN Hyperlipidemia h/o PUD - rate control, transition to PO - IV lasix - monitor urine output, creatinine - echocardiogram - start anticoagulation - O2 to keep Spo2 >90% - monitor CXR with diuresis - can monitor on telemetry
--- NOTE | 2019-06-18 12:06 | CON.CARD ---
Consult Consult Specialty:: Cardiology Reason for Consultation:: sob af - History of Present Illness History of Present Illness: 79 y.o. F PMH HTN, HLD, GERD, prior DVT, peptic ulcer disease, asthma presenting with progressively worsening dyspnea on exertion for 2-3 days duration. Pt says that she has never felt this SOB in the past. She tried her home nebulizers for her asthma to help with the SOB but had no improvement of symptoms. Patient also c/o sharp 9/10 back pain that has been present since . En route to the hospital EMS noted pt was in A-fib w/ RVR in the 130s and -- subsequently gave 15mg Cardizem with no change in status. In the ED, patient given another 15mg Cardizem IV, Lasix 40mg IV, medrol 125mg and LR 250mL bolus d/t BP drop to 80s/50s with improvement of symptoms. On ROS denies CP/ DEYR/ fevers/ chills/ nausea/ vomiting/ urinary changes/bowel changes/ wt changes. ER course was notable for: (1) CXR: congestion R>L & pleural effusions (2) Chest CTA: No PE, no aortic aneurysm dissection (3) tachy to 135; afebrile - History Source History Provided By: Patient, Medical Record - Alcohol/Substance Use Hx Alcohol Use: No - Smoking History Smoking history: Never smoked Aproximately how many cigarettes per day: 0 Home Medications - Allergies Allergies/Adverse Reactions: Allergies Allergy/AdvReac Type Severity Reaction Status Date / Time No Known Allergies Allergy Verified 06/17/19 19:42 - Home Medications Home Medications: Ambulatory Orders Acetaminophen [Tylenol .Regular Strength -] 650 mg PO Q6H PRN #0 tablet Pantoprazole Sodium [Protonix -] 40 mg PO BID #30 tablet.ec 06/23/13 Amlodipine Besylate [Norvasc -] 10 mg PO DAILY 06/18/19 Review of Systems - Review of Systems Constitutional: reports: No Symptoms Eyes: reports: No Symptoms HENT: reports: No Symptoms Neck: reports: No Symptoms Cardiovascular: reports: Palpitations, Shortness of Breath Respiratory: reports: SOB, SOB on Exertion Gastrointestinal: reports: No Symptoms Genitourinary: reports: No Symptoms Breasts: reports: No Symptoms Reported Musculoskeletal: reports: No Symptoms Integumentary: reports: No Symptoms Neurological: reports: No Symptoms Endocrine: reports: No Symptoms Hematology/Lymphatic: reports: No Symptoms Psychiatric: reports: No Symptoms Vital Signs: Vital Signs Temperature 98.5 F 06/18/19 03:10 Pulse Rate 122 H 06/18/19 09:10 Respiratory Rate 27 H 06/18/19 06:00 Blood Pressure 104/81 06/18/19 09:10 O2 Sat by Pulse Oximetry (%) 98 06/18/19 04:28 Constitutional: Yes: Well Nourished, No Distress, Calm Eyes: Yes: WNL, Conjunctiva Clear, EOM Intact HENT: Yes: WNL, Atraumatic, Normocephalic Neck: Yes: WNL, Supple, Trachea Midline Respiratory: Yes: Diminished Gastrointestinal: Yes: WNL, Normal Bowel Sounds Renal/: Yes: WNL Cardiovascular: Yes: Pulse Irregular Musculoskeletal: Yes: WNL Extremities: Yes: WNL Integumentary: Yes: WNL Neurological: Yes: WNL, Alert, Oriented ...Motor Strength: WNL Psychiatric: Yes: WNL, Alert, Oriented - Other Data Labs, Other Data: CBC, BMP 06/18/19 05:40 06/17/19 20:45 Troponin, BNP 06/17/19 06/17/19 06/18/19 20:45 20:45 05:45 Troponin I 0.02 < 0.02 B-Natriuretic Peptide 3211.7 H Troponin, BNP 06/17/19 06/17/19 06/18/19 20:45 20:45 05:45 Troponin I 0.02 < 0.02 B-Natriuretic Peptide 3211.7 H Imaging - Results Chest X-ray: Image Reviewed (cm improvement in areation) EKG: Image Reviewed (af rvr) Problem List - Problems (1) Acute decompensated heart failure Code(s): I50.9 - HEART FAILURE, UNSPECIFIED (2) Rapid atrial fibrillation Code(s): I48.91 - UNSPECIFIED ATRIAL FIBRILLATION Assessment/Plan new onset AF, HTN, HLD, GERD, prior DVT s/p IVCF, peptic ulcer disease, asthma presenting with progressively worsening dyspnea on exertion for 2-3 days duration. Plan rate controll IV than PO AC IV lasix echo cc time spent 70 min
--- NOTE | 2019-06-18 13:06 | PN ---
Physical Exam: SUBJECTIVE: Patient seen and examined at bedside. pt states that she feels her heart racing and feels short of breath. denies n/v/d. OBJECTIVE: Vital Signs Period Temp Pulse Resp BP Sys/Brown Pulse Ox Last 24 Hr 97.8 F-98.5 F 87-135 21-35 104-161/72-119 95-100 GENERAL: The patient is awake, alert, and fully oriented, in no acute distress. LUNGS: Breath sounds equal, b/l crackles, no accessory muscle use. pt tachypneic HEART: Regular rate and rhythm, S1, S2 without murmur, rub or gallop. ABDOMEN: Soft, nontender, nondistended, normoactive bowel sounds, no guarding EXTREMITIES: 2+ pulses, warm, well-perfused, no edema. SKIN: Warm, dry, normal turgor, no rashes or lesions noted Laboratory Last Values WBC 3.8 K/mm3 (4.0-10.0) L 06/18/19 05:40 RBC 3.66 M/mm3 (3.60-5.2) 06/18/19 05:40 Hgb 11.5 GM/dL (10.7-15.3) 06/18/19 05:40 Hct 34.2 % (32.4-45.2) 06/18/19 05:40 MCV 93.4 fl (80-96) 06/18/19 05:40 MCH 31.3 pg (25.7-33.7) 06/18/19 05:40 MCHC 33.5 g/dl (32.0-36.0) 06/18/19 05:40 RDW 13.8 % (11.6-15.6) 06/18/19 05:40 Plt Count 230 K/MM3 (134-434) 06/18/19 05:40 MPV 8.5 fl (7.5-11.1) 06/18/19 05:40 Absolute Neuts (auto) 3.2 K/mm3 (1.5-8.0) 06/18/19 05:40 Neutrophils % 82.3 % (42.8-82.8) D 06/18/19 05:40 Lymphocytes % 16.1 % (8-40) D 06/18/19 05:40 Monocytes % 1.5 % (3.8-10.2) L D 06/18/19 05:40 Eosinophils % 0.0 % (0-4.5) D 06/18/19 05:40 Basophils % 0.1 % (0-2.0) 06/18/19 05:40 Nucleated RBC % 3 % (0-0) H 06/18/19 05:40 Anticoagulation Therapy No Result Required. 06/18/19 00:00 Puncture Site Left radial 06/18/19 00:00 ABG pH 7.40 (7.35-7.45) 06/18/19 00:00 ABG pCO2 at Pt Temp 32.5 mmHg (35-45) L 06/18/19 00:00 ABG pO2 at Pt Temp 119 mmHg (80-100) H 06/18/19 00:00 ABG HCO3 19.9 mmol/L (22-27) L 06/18/19 00:00 ABG O2 Sat (Measured) 98.3 % (95-98) H 06/18/19 00:00 ABG O2 Content 16.1 % vol 06/18/19 00:00 ABG Base Excess -3.6 meq/l (-2-2) L 06/18/19 00:00 Adebayo Test Positive 06/18/19 00:00 Carboxyhemoglobin 0.8 % (0-2) 06/18/19 00:00 Methemoglobin < 1.0 % (0-2) 06/18/19 00:00 O2 Delivery Device Bipap 06/18/19 00:00 Oxygen Flow Rate 50 06/18/19 00:00 Vent Mode S/t 06/18/19 00:00 Vent Rate 18 06/18/19 00:00 Mechanical Rate No Result Required. 06/18/19 00:00 Pressure Support Vent 06/2006/18/19 00:00 Sodium 142 mmol/L (136-145) 06/17/19 20:45 Potassium 3.6 mmol/L (3.5-5.1) 06/17/19 20:45 Chloride 112 mmol/L (98-107) H 06/17/19 20:45 Carbon Dioxide 20 mmol/L (21-32) L 06/17/19 20:45 Anion Gap 10 MMOL/L (8-16) 06/17/19 20:45 BUN 13.3 mg/dL (7-18) 06/17/19 20:45 Creatinine 1.0 mg/dL (0.55-1.3) 06/17/19 20:45 Est GFR (CKD-EPI)AfAm 61.19 06/17/19 20:45 Est GFR (CKD-EPI)NonAf 52.79 06/17/19 20:45 Random Glucose 106 mg/dL (74-106) 06/17/19 20:45 Lactic Acid 1.7 mmol/L (0.4-2.0) 06/18/19 01:51 Calcium 9.3 mg/dL (8.5-10.1) 06/17/19 20:45 Phosphorus 3.9 mg/dL (2.5-4.9) 06/18/19 05:45 Magnesium 1.8 mg/dL (1.8-2.4) 06/18/19 05:45 Total Bilirubin 1.0 mg/dL (0.2-1) 06/17/19 20:45 AST 27 U/L (15-37) 06/17/19 20:45 ALT 17 U/L (13-61) 06/17/19 20:45 Alkaline Phosphatase 102 U/L (45-117) 06/17/19 20:45 Creatine Kinase 107 U/L (26-192) 06/17/19 20:45 Troponin I < 0.02 ng/ml (0.00-0.05) 06/18/19 05:45 B-Natriuretic Peptide 3211.7 pg/ml (5-450) H 06/17/19 20:45 Total Protein 6.1 g/dl (6.4-8.2) L 06/17/19 20:45 Albumin 3.2 g/dl (3.4-5.0) L 06/17/19 20:45 TSH 3.41 uIU/ml (0.358-3.74) 06/18/19 01:51 Urine Color Yellow 06/18/19 04:00 Urine Appearance Clear 06/18/19 04:00 Urine pH 6.0 (5.0-8.0) 06/18/19 04:00 Ur Specific [place] 1.035 (1.010-1.035) 06/18/19 04:00 Urine Protein Negative (NEGATIVE) 06/18/19 04:00 Urine Glucose (UA) Negative (NEGATIVE) 06/18/19 04:00 Urine Ketones Negative (NEGATIVE) 06/18/19 04:00 Urine Blood Negative (NEGATIVE) 06/18/19 04:00 Urine Nitrite Negative (NEGATIVE) 06/18/19 04:00 Urine Bilirubin Negative (NEGATIVE) 06/18/19 04:00 Urine Urobilinogen 0.2 mg/dL (0.2-1.0) 06/18/19 04:00 Ur Leukocyte Esterase Negative (NEGATIVE) 06/18/19 04:00 Current Medications Apixaban (Eliquis -) 5 mg PO BID [facility] Last Admin: 06/18/19 11:00 Dose: 5 mg Chlorhexidine Gluconate (Hibiclens For Decolonization -) 1 applic TP HS [facility] Diltiazem HCl (Cardizem -) 60 mg PO Q6HPO [facility] Last Admin: 06/18/19 11:00 Dose: 60 mg Furosemide (Lasix Injection -) 40 mg IVPUSH DAILY [facility] Last Admin: 06/18/19 10:41 Dose: 40 mg Mupirocin (Bactroban Ointment (For Decolonization) -) 1 applic NS BID [facility] Stop: 06/23/19 09:59 Last Admin: 06/18/19 10:42 Dose: 1 applic Pantoprazole Sodium (Protonix Iv) 40 mg IVPUSH DAILY [facility] Last Admin: 06/18/19 10:41 Dose: 40 mg ASSESSMENT/PLAN: Chest CTA: no evidence of PE. +small to moderate R sided, v small L sided pleural effusion, mild bilateral flank subcutaneous edema suggesting vol overload. Development of bilateral upper and lower lobe opacities suggestive of infiltrates EKG: +afib w/ RVR vent rate 137ms, qtc 480ms ASSESSMENT/PLAN: 79 yo F with PMH HTN, HLD, s/p DVT (on coumadin), GERD, s/p hip replacement, IVC filter, peptic ulcer dz, asthma, who presented for acutely worsening SOB over the past 2-3 days. Pt is admitted to ICU for new onset afib with RVR, labile BP and tachypnea. Neuro -AAO x 3 ; intact Cardio New onset afib w/ RVR -possible 2/2 valvular issue - ECHO: -suboptimal study, moderate aortic valve thickening, moderate Aortic sclerosis , moderate Aortic regurg, moderate- severe tricuspid regurg, elevated RV systolic pressure, severe aortic stenosis, severe mitral regurg, LV EF normal -c/w cardiazem 60 mg PO -cardio recs appreciated( Dr. Mata) New onset HFpEF likely 2/2 afib w/ RVR -with elevated BNP ~3200, pl eff R>L -c/w diuresis w/ lasix 40mg IVP daily -daily wt, i/o, na control 2g Pulm Tachypnea likely 2/2 new onset HFpEF -currently saturating well on NC -ABG without hypercapnia or hypoxemia -CTA (-) for PE Heme: hx DVT -has IVC filter -c/w Eliquis 5 BID -f/u duplex LE F/E/N continue to follow lytes sodium controlled diet DVT PPX: Eliquis 5 BID GIPPX: pantoprazole 40 IVP : -c/w rush for one more day. D/C rush tomorrow 06/19. Dispo: transfer to tele Visit type - Emergency Visit Emergency Visit: No - New Patient This patient is new to me today: Yes - Critical Care Critical Care patient: Yes Total Critical Care Time (in minutes): 36 Critical Care Statement: The care of this patient involved high complexity decision making to prevent further life threatening deterioration of the patient 's condition and/or to evaluate & treat vital organ system(s) failure or risk of failure. ATTENDING PHYSICIAN STATEMENT I saw and evaluated the patient. I reviewed the resident's note and discussed the case with the resident. I agree with the resident's findings and plan as documented. SUBJECTIVE: OBJECTIVE: ASSESSMENT AND PLAN:
--- NOTE | 2019-06-18 13:10 | ECHO ---
Name: RHIANNA, LEXX Exam:Adult Echocardiogram Study Date: 06/18/2019 07:33 AM Age: 79 yrs Reason For Study: CHF Height: 63 in Weight: 150 lb BSA: 1.7 m2 MMode/2D Measurements & Calculations IVSd: 1.4 cm Ao root diam: 2.6 cm LVIDd: 3.5 cm LA dimension: 3.3 cm LVIDs: 2.4 cm LVPWd: 1.2 cm EDV(Teich): 50.5 ml LVOT diam: 2.0 cm ESV(Teich): 19.5 ml LAV (MOD-bp): 81.4 ml Doppler Measurements & Calculations MV E max quintin: 147.0 cm/sec Ao V2 max: 440.9 cm/sec MV dec time: 0.22 sec Ao max P.5 mmHg Ao V2 mean: 323.3 cm/sec Ao mean P.3 mmHg Ao V2 VTI: 88.2 cm RAFIQ(I,D): 0.56 cm2 AI P1/2t: 199.0 msec RAFIQ(V,D): 0.58 cm2 AI max quintin: 351.8 cm/sec LV V1 max P.7 mmHg AI max P.7 mmHg LV V1 mean P.4 mmHg AI dec slope: 517.9 cm/sec2 LV V1 max: 81.5 cm/sec LV V1 mean: 55.0 cm/sec LV V1 VTI: 15.8 cm MR max quintin: 593.4 cm/sec SV(LVOT): 49.4 ml MR max P.0 mmHg TR max quintin: 275.1 cm/sec PA V2 max: 101.0 cm/sec TR max P.4 mmHg PA max P.1 mmHg Med Peak E' Quintin: 7.9 cm/sec PI Vmax: 220.2 cm/sec Med E/e': 18.5 Lat Peak E' Quintin: 10.7 cm/sec Lat E/e': 13.8 Procedure The study was technically difficult with many images being suboptimal in quality. Left Ventricle The left ventricular size, thickness and function are normal. The left ventricular ejection fraction is normal. Regional wall motion abnormalities cannot be excluded due to limited visualization. Right Ventricle The right ventricle is not well visualized. Atria Normal left and right atrial size and function. Mitral Valve There is mild mitral valve thickening. There is no mitral valve stenosis. There is severe mitral regurgitation. Tricuspid Valve There is mild tricuspid valve thickening. There is no tricuspid stenosis. There is moderate to severe tricuspid regurgitation. Right ventricular systolic pressure is elevated at 40-50mmHg. Aortic Valve There is moderate aortic valve thickening. There is moderate aortic sclerosis.;. Severe valvular aort ic stenosis. Moderate aortic regurgitation. Pulmonic Valve The pulmonic valve is not well visualized. There is no pulmonic valvular stenosis. Mild pulmonic valv ular regurgitation. Great Vessels The aortic root is normal size. Pericardium/Pleura There is no pericardial effusion. Interpretation Summary The study was technically difficult with many images being suboptimal in quality. There is moderate aortic valve thickening. There is moderate aortic sclerosis.; Moderate aortic regurgitation. Mild pulmonic valvular regurgitation. There is moderate to severe tricuspid regurgitation. Right ventricular systolic pressure is elevated at 40-50mmHg. Severe valvular aortic stenosis. There is severe mitral regurgitation. The left ventricular size, thickness and function are normal The left ventricular ejection fraction is normal. Regional wall motion abnormalities cannot be excluded due to limited visualization. MD Andrei Mata 06/18/2019 01:09 PM
[2019-06-18 18:11] LABS: ALBUMIN 3.4 g/dl (3.4-5.0); BILIRUBIN,TOTAL 0.9 mg/dL (0.2-1); BLOOD UREA NITROGEN 18.5 mg/dL (7-18); CALCIUM 9.2 mg/dL (8.5-10.1); CREATININE 1.4 mg/dL (0.55-1.3); POTASSIUM 3.8 mmol/L (3.5-5.1); TOT PROT 6.4 g/dl (6.4-8.2)
--- NOTE | 2019-06-18 20:19 | PN ---
Progress Note (short form) - Note Progress Note: Nurse reports urine output at 200 cc during her shift. Concerned about decreased urine output as patient was give 40 mg Lasix IV. Patient reassessed. Saturating well at 95%. Bibasilar crackles are present and unchanged from this morning. Bladder scan shows 29 cc of urine. [place] in place. Repeat CMP ordered which shows Cr of 1.4 (from 1.0 yesterday evening). Nephrology consult placed for EUGENIO. As the patient has CHF, will not give additional IV fluids at this time.
[2019-06-18] MEDS ORDERED: PT OWN MED DRAWER 7, Y5N ONE (20:59)
[2019-06-18] MEDS ORDERED: CHLORHEXIDINE GLUCONATE 4% CLEANSER FOR DECOLONIZATION TP SCH (22:00)
[2019-06-19] MEDS: dilTIAZem HCL 60 MG TABLET (FP) PO SCH ×3 (00:14→11:34)
[2019-06-19 07:12] LABS: HEMATOCRIT 31.6 % (32.4-45.2); HEMOGLOBIN 10.5 GM/dL (10.7-15.3); MCHC 33.2 g/dl (32.0-36.0); MEAN CELL VOLUME 93.3 fl (80-96); MEAN PLT VOLUME 8.5 fl (7.5-11.1); PLATELET COUNT 233 K/MM3 (134-434); RBC 3.39 M/mm3 (3.60-5.2); RDW 13.5 % (11.6-15.6)
[2019-06-19 07:41] LABS: ALBUMIN 3.2 g/dl (3.4-5.0); BILIRUBIN,TOTAL 0.8 mg/dL (0.2-1); CALCIUM 9.1 mg/dL (8.5-10.1); CREATININE 1.5 mg/dL (0.55-1.3); MAGNESIUM 1.9 mg/dL (1.8-2.4); PHOSPHOROUS 4.5 mg/dL (2.5-4.9); POTASSIUM 4.1 mmol/L (3.5-5.1); TOT PROT 5.9 g/dl (6.4-8.2)
[2019-06-19] MEDS ORDERED: guaiFENesin/D-M SUGAR-FREE/ACLHOL-FREE 118 ML BOTTLE PO PRN (08:04)
--- NOTE | 2019-06-19 09:12 | PN ---
Physical Exam: SUBJECTIVE: Patient seen and examined at bedside. pt states she has been coughing and having alot of phlegm. she states she feels alot of chest congestion but denies chest pain or palpitations. pt requests some decongestant. pt states she is having some difficulty breathing but she thinks it is attributed to all of the phlegm. OBJECTIVE: Vital Signs Period Temp Pulse Resp BP Sys/Brown Pulse Ox Last 24 Hr 97.3 F-98.0 F 104-145 22-28 96-117/66-96 97-99 GENERAL: The patient is awake, alert, and fully oriented, in no acute distress. LUNGS: Breath sounds equal, b/l crackles, no accessory muscle use. on NC HEART: tachycardic and irregular rhythm, S1, S2 ABDOMEN: Soft, nontender, nondistended, normoactive bowel sounds, no guarding EXTREMITIES: 2+ pulses, warm, well-perfused, no edema. SKIN: Warm, dry, normal turgor, no rashes or lesions noted Laboratory Results - last 24 hr 06/17/19 06/18/19 06/19/19 20:17 17:30 05:58 WBC 13.0 H RBC 3.39 L Hgb 10.5 L Hct 31.6 L MCV 93.3 MCH 31.0 MCHC 33.2 RDW 13.5 Plt Count 233 MPV 8.5 PT with INR Cancelled INR Cancelled PTT (Actin FS) Cancelled Sodium 140 Potassium 3.8 Chloride 108 H Carbon Dioxide 22 Anion Gap 11 BUN 18.5 H Creatinine 1.4 H Est GFR (CKD-EPI)AfAm 40.74 Est GFR (CKD-EPI)NonAf 35.15 Random Glucose 151 H Calcium 9.2 Phosphorus Magnesium Total Bilirubin 0.9 AST 26 ALT 19 Alkaline Phosphatase 98 Total Protein 6.4 Albumin 3.4 06/19/19 05:58 WBC RBC Hgb Hct MCV MCH MCHC RDW Plt Count MPV PT with INR INR PTT (Actin FS) Sodium 138 Potassium 4.1 Chloride 106 Carbon Dioxide 22 Anion Gap 10 BUN 26.0 H Creatinine 1.5 H Est GFR (CKD-EPI)AfAm 37.48 Est GFR (CKD-EPI)NonAf 32.34 Random Glucose 146 H Calcium 9.1 Phosphorus 4.5 Magnesium 1.9 Total Bilirubin 0.8 AST 24 ALT 19 Alkaline Phosphatase 89 Total Protein 5.9 L Albumin 3.2 L Current Medications Apixaban (Eliquis -) 5 mg PO BID [facility] Last Admin: 06/18/19 21:02 Dose: 5 mg Chlorhexidine Gluconate (Hibiclens For Decolonization -) 1 applic TP HS [facility] Last Admin: 06/18/19 21:02 Dose: 1 applic Diltiazem HCl (Cardizem -) 60 mg PO Q6HPO [facility] Last Admin: 06/19/19 05:42 Dose: 60 mg Furosemide (Lasix Injection -) 40 mg IVPUSH DAILY [facility] Last Admin: 06/18/19 10:41 Dose: 40 mg Guaifenesin (Diabetic Tussin Dm -) 10 ml PO Q4H PRN PRN Reason: COUGH Mupirocin (Bactroban Ointment (For Decolonization) -) 1 applic NS BID [facility] Stop: 06/23/19 09:59 Last Admin: 06/18/19 21:02 Dose: 1 applic Pantoprazole Sodium (Protonix Iv) 40 mg IVPUSH DAILY [facility] Last Admin: 06/18/19 10:41 Dose: 40 mg Chest CTA: no evidence of PE. +small to moderate R sided, v small L sided pleural effusion, mild bilateral flank subcutaneous edema suggesting vol overload. Development of bilateral upper and lower lobe opacities suggestive of infiltrates EKG: +afib w/ RVR vent rate 137ms, qtc 480ms ASSESSMENT/PLAN: 79 yo F with PMH HTN, HLD, s/p DVT (on coumadin), GERD, s/p hip replacement, IVC filter, peptic ulcer dz, asthma, who presented for acutely worsening SOB over the past 2-3 days. Pt is admitted to ICU for new onset afib with RVR, labile BP and tachypnea. Neuro -AAO x 3 ; intact Cardio New onset afib w/ RVR -possible 2/2 valvular issue - ECHO: -suboptimal study, moderate aortic valve thickening, moderate Aortic sclerosis , moderate Aortic regurg, moderate- severe tricuspid regurg, elevated RV systolic pressure, severe aortic stenosis, severe mitral regurg, LV EF normal -will dc cardiazem 60 mg PO. pt responding to lopressor 5 IVP x3 to control rate. will start metoprolol 25 mg po BID -cardio recs appreciated( Dr. Mata) -continue tele monitoring New onset HFpEF likely 2/2 afib w/ RVR -with elevated BNP ~3200, pl eff R>L -d/c lasix 2/2 valvular disease -daily wt, i/o, na control 2g Pulm Tachypnea likely 2/2 new onset HFpEF -currently saturating well on NC -ABG without hypercapnia or hypoxemia -CTA (-) for PE -pt has new onset productive cough. robitussin prn ID -new leukocytosis, will continue to trend -ceftriaxone daily Heme: hx DVT -has IVC filter -c/w Eliquis 5 BID -duplex LE negative for acute DVT : EUGENIO -continue to monitor Cr -awaiting renal/bladder u/s -monitor Uoutpt / I/Os -avoid nephrotoxic agents F/E/N continue to follow lytes sodium controlled diet DVT PPX: Eliquis 5 BID GIPPX: pantoprazole 40 IVP Dispo: continue to monitor in ICU Visit type - Emergency Visit Emergency Visit: No - New Patient This patient is new to me today: Yes - Critical Care Critical Care patient: Yes Total Critical Care Time (in minutes): 36 Critical Care Statement: The care of this patient involved high complexity decision making to prevent further life threatening deterioration of the patient 's condition and/or to evaluate & treat vital organ system(s) failure or risk of failure. ATTENDING PHYSICIAN STATEMENT I saw and evaluated the patient. I reviewed the resident's note and discussed the case with the resident. I agree with the resident's findings and plan as documented. SUBJECTIVE: OBJECTIVE: ASSESSMENT AND PLAN:
--- NOTE | 2019-06-19 10:10 | PN ---
Progress Note (short form) - Note Progress Note: Pt examined events noted no sob no distress Vital Signs - 24 hr 06/18/19 06/18/19 06/18/19 12:00 14:00 16:00 Temperature 97.3 F L 98.0 F Pulse Rate 145 H 104 H Respiratory 27 H 28 H 22 H Rate Blood Pressure 96/81 100/66 107/80 O2 Sat by Pulse Oximetry (%) 06/18/19 06/18/19 06/18/19 18:00 20:00 20:01 Temperature 97.8 F Pulse Rate 128 H 126 H Respiratory 22 H 26 H Rate Blood Pressure 111/85 117/89 O2 Sat by Pulse 97 Oximetry (%) 06/18/19 06/18/19 06/19/19 20:35 22:00 00:00 Temperature 97.8 F Pulse Rate 119 H 110 H 120 H Respiratory 25 H 27 H Rate Blood Pressure 109/82 109/88 O2 Sat by Pulse 97 Oximetry (%) 06/19/19 06/19/19 06/19/19 02:00 04:00 05:53 Temperature 97.5 F L 97.5 F L 97.5 F L Pulse Rate 105 H 127 H 120 H Respiratory 24 H 25 H 27 H Rate Blood Pressure 113/84 116/96 112/73 O2 Sat by Pulse 99 Oximetry (%) 06/19/19 06:00 Temperature Pulse Rate Respiratory Rate Blood Pressure O2 Sat by Pulse 98 Oximetry (%) Current Medications Generic Name Dose Route Start Last Admin Trade Name Freq PRN Reason Stop Dose Admin Apixaban 5 mg 06/18/19 10:45 06/18/19 21:02 Eliquis - PO 5 mg BID SU Administration Chlorhexidine Gluconate 1 applic 06/18/19 22:00 06/18/19 21:02 Hibiclens For Decolonization - TP 1 applic HS SU Administration Diltiazem HCl 60 mg 06/18/19 12:00 06/19/19 05:42 Cardizem - PO 60 mg Q6HPO SU Administration Furosemide 40 mg 06/18/19 10:00 06/18/19 10:41 Lasix Injection - IVPUSH 40 mg DAILY SU Administration Guaifenesin 10 ml 06/19/19 08:04 Diabetic Tussin Dm - PO Q4H PRN COUGH Mupirocin 1 applic 06/18/19 10:00 10/02/19 21:02 Bactroban Ointment (For Decolonization) - NS 06/23/19 09:59 1 applic BID SU Administration Pantoprazole Sodium 40 mg 06/18/19 10:00 06/18/19 10:41 Protonix Iv IVPUSH 40 mg DAILY SU Administration Intake & Output 06/16/19 06/17/19 06/18/19 06/19/19 23:59 23:59 23:59 23:59 Intake Total 365 240 Output Total 1430 100 Balance -1065 140 Weight 150 lb 148 lb 11.2 oz 147 lb 11.2 oz Laboratory Results - last 24 hr 06/17/19 06/18/19 06/19/19 20:17 17:30 05:58 WBC 13.0 H RBC 3.39 L Hgb 10.5 L Hct 31.6 L MCV 93.3 MCH 31.0 MCHC 33.2 RDW 13.5 Plt Count 233 MPV 8.5 PT with INR Cancelled INR Cancelled PTT (Actin FS) Cancelled Sodium 140 Potassium 3.8 Chloride 108 H Carbon Dioxide 22 Anion Gap 11 BUN 18.5 H Creatinine 1.4 H Est GFR (CKD-EPI)AfAm 40.74 Est GFR (CKD-EPI)NonAf 35.15 Random Glucose 151 H Calcium 9.2 Phosphorus Magnesium Total Bilirubin 0.9 AST 26 ALT 19 Alkaline Phosphatase 98 Total Protein 6.4 Albumin 3.4 06/19/19 05:58 WBC RBC Hgb Hct MCV MCH MCHC RDW Plt Count MPV PT with INR INR PTT (Actin FS) Sodium 138 Potassium 4.1 Chloride 106 Carbon Dioxide 22 Anion Gap 10 BUN 26.0 H Creatinine 1.5 H Est GFR (CKD-EPI)AfAm 37.48 Est GFR (CKD-EPI)NonAf 32.34 Random Glucose 146 H Calcium 9.1 Phosphorus 4.5 Magnesium 1.9 Total Bilirubin 0.8 AST 24 ALT 19 Alkaline Phosphatase 89 Total Protein 5.9 L Albumin 3.2 L S1 S2 irregular Systolic murmur+ Lungs decreased,crackles+ Abd-soft, NT edema+ PLAN spoke with ICU team on Cardizem PO start on eliquis BID noted decreased urine output and worsening renal function renal follow up with regards to diuresis Cardiology eval will keep rush continue Lasix check daily weight and output Problem List - Problems (1) Acute decompensated heart failure Code(s): I50.9 - HEART FAILURE, UNSPECIFIED (2) Rapid atrial fibrillation Code(s): I48.91 - UNSPECIFIED ATRIAL FIBRILLATION
[2019-06-19] MEDS ORDERED: METOPROLOL TARTRATE 5 MG/5 ML VIAL IVPUSH ONE (10:31)
[2019-06-19] MEDS ORDERED: DOCUSATE SODIUM 100 MG CAPSULE (FP) PO SCH (10:45)
[2019-06-19] MEDS ORDERED: CEFTRIAXONE 1 GM in DEXTROSE 5%-WATER - 50 ML IVPB SCH (10:45)
[2019-06-19] MEDS ORDERED: POLYETHYLENE GLYCOL 3350 119 GM BTL PO SCH (10:45)
[2019-06-19] MEDS ORDERED: cefTRIAXone SODIUM 1 GM VIAL ONE (11:07)
[2019-06-19] MEDS ORDERED: DEXTROSE 5%-WATER - 50 ML IVPB ONE (11:07)
[2019-06-19] MEDS: PANTOPRAZOLE SODIUM 40 MG VIAL IVPUSH SCH (11:20)
[2019-06-19] MEDS: APIXABAN 5 MG TABLET PO SCH ×2 (11:22→21:57)
[2019-06-19] MEDS ORDERED: METOPROLOL TARTRATE 5 MG/5 ML VIAL IVPUSH PRN (11:33)
[2019-06-19] MEDS: MUPIROCIN 2% TOPICAL OINTMENT FOR DECOLONIZATION NS SCH (11:33)
--- NOTE | 2019-06-19 11:37 | PN ---
Teaching Attending Note Name of Resident: Luna Rosas ATTENDING PHYSICIAN STATEMENT I saw and evaluated the patient. I reviewed the resident's note and discussed the case with the resident. I agree with the resident's findings and plan as documented. SUBJECTIVE: Pt seen and examined in the ICU. Off cardizem gtt but rates not controlled. Gave IV lopressor with better response. Echocardiogram showing severe mitral regurgitation and aortic stenosis. OBJECTIVE: Vital Signs Period Temp Pulse Resp BP Sys/Bronw Pulse Ox Last 24 Hr 97.3 F-98.0 F 104-145 22-31 96-117/66-96 97-99 Intake & Output 06/16/19 06/17/19 06/18/19 06/19/19 23:59 23:59 23:59 23:59 Intake Total 365 240 Output Total 1430 100 Balance -1065 140 Weight 68.039 kg 67.449 kg 66.996 kg Gen: tachypneic at rest Heart: irregular, tachycardic Lung: scattered rhonchi Abd: soft, nontender Ext: no edema CBC, BMP 06/19/19 05:58 06/19/19 05:58 Active Medications Apixaban (Eliquis -) 5 mg PO BID [facility] Last Admin: 06/19/19 11:22 Dose: 5 mg Chlorhexidine Gluconate (Hibiclens For Decolonization -) 1 applic TP HS [facility] Last Admin: 06/18/19 21:02 Dose: 1 applic Diltiazem HCl (Cardizem -) 60 mg PO Q6HPO [facility] Last Admin: 06/19/19 05:42 Dose: 60 mg Docusate Sodium (Colace -) 100 mg PO BID [facility] Last Admin: 06/19/19 11:22 Dose: 100 mg Guaifenesin (Diabetic Tussin Dm -) 10 ml PO Q4H PRN PRN Reason: COUGH Ceftriaxone Sodium 1 gm/ (Dextrose) 50 mls @ 100 mls/hr IVPB DAILY [facility]; Protocol Last Admin: 06/19/19 11:22 Dose: 100 mls/hr Metoprolol Tartrate (Lopressor Injection -) 5 mg IVPUSH Q5M PRN PRN Reason: TACHYCARDIA Mupirocin (Bactroban Ointment (For Decolonization) -) 1 applic NS BID [facility] Stop: 06/23/19 09:59 Last Admin: 06/18/19 21:02 Dose: 1 applic Pantoprazole Sodium (Protonix Iv) 40 mg IVPUSH DAILY [facility] Last Admin: 06/19/19 11:20 Dose: 40 mg Polyethylene Glycol (Miralax (For Daily Use) -) 17 gm PO BID [facility] ASSESSMENT AND PLAN: New Onset Atrial Fibrillation with RVR Acute Diastolic Heart Failure Severe Mitral Regurgitation Severe Aortic Stenosis Acute Kidney Injury h/o DVT s/p IVC filter HTN Hyperlipidemia h/o PUD - rate control - start beta blockers - hold lasix today until rates better controlled - monitor urine output, creatinine - continue anticoagulation - start empiric antibiotics for now - O2 to keep Spo2 >90% - monitor CXR with diuresis
[2019-06-19] MEDS ORDERED: METOPROLOL TARTRATE 5 MG/5 ML VIAL ONE (11:39)
[2019-06-19] MEDS ORDERED: metoPROLOL SUCCINATE 25 MG TAB.SR.24H (FP) PO SCH (11:45)
[2019-06-19] MEDS ORDERED: PT OWN MED DRAWER 7, Y5N ONE (13:30)
--- NOTE | 2019-06-19 17:01 | CONSULT ---
Consult Consult Specialty:: Nephrology Reason for Consultation:: EUGENIO - History of Present Illness Chief Complaint: shortness of breath History of Present Illness: Pt is an 79 year old female with pmhx of htn, hld, gerd, dvt, and asthma who presented to the ER with progressive shortness of breath. She also had complained of back pain. She was found to be in rapid a-fib. She was admitted to the ICU. She did get a ct angio to r/o PE. I was called to evaluate her for elevated creatinine. She denies history of CKD. SHe denies nsaid use. She feels that her breathing is improved today. - History Source History Provided By: Patient, Medical Record - Past Medical History Cardio/Vascular: Yes: HTN, Hyperlipdemia, Other (dvt) Pulmonary: Yes: Asthma Gastrointestinal: Yes: GERD - Alcohol/Substance Use Hx Alcohol Use: No - Smoking History Smoking history: Never smoked Aproximately how many cigarettes per day: 0 Home Medications - Allergies Allergies/Adverse Reactions: Allergies Allergy/AdvReac Type Severity Reaction Status Date / Time No Known Allergies Allergy Verified 06/17/19 19:42 - Home Medications Home Medications: Ambulatory Orders Acetaminophen [Tylenol .Regular Strength -] 650 mg PO Q6H PRN #0 tablet Pantoprazole Sodium [Protonix -] 40 mg PO BID #30 tablet.ec 06/23/13 Amlodipine Besylate [Norvasc -] 10 mg PO DAILY 06/18/19 Family Medical History Family History: Denies Review of Systems - Review of Systems Constitutional: reports: Malaise Eyes: reports: No Symptoms HENT: reports: No Symptoms Neck: reports: No Symptoms Cardiovascular: reports: Edema, Shortness of Breath Respiratory: reports: Cough, SOB, SOB on Exertion Gastrointestinal: reports: No Symptoms Genitourinary: reports: No Symptoms Musculoskeletal: reports: No Symptoms Integumentary: reports: No Symptoms Neurological: reports: No Symptoms Endocrine: reports: No Symptoms Psychiatric: reports: No Symptoms Physical Exam Vital Signs: Vital Signs Temperature 98.0 F 06/19/19 14:00 Pulse Rate 84 06/19/19 14:00 Respiratory Rate 28 H 06/19/19 14:00 Blood Pressure 176/161 H 06/19/19 14:00 O2 Sat by Pulse Oximetry (%) 97 06/19/19 09:00 Constitutional: Yes: Calm Eyes: Yes: Conjunctiva Clear HENT: Yes: Atraumatic Neck: Yes: Supple Cardiovascular: Yes: Pulse Irregular, S1, S2 Respiratory: Yes: On Nasal O2 Gastrointestinal: Yes: Soft Renal/: Yes: Youngblood Present, Hematuria Musculoskeletal: Yes: WNL Edema: Yes Edema: LLE: Trace, RLE: Trace Neurological: Yes: Oriented Psychiatric: Yes: Oriented Labs: CBC, BMP 06/19/19 05:58 06/19/19 05:58 Laboratory Tests 06/18/13 06/19/13 06/17/19 05:05 12:30 20:45 ABG pH ABG HCO3 ABG O2 Sat (Measured) Sodium Potassium Chloride Carbon Dioxide Anion Gap BUN Creatinine 0.5 L 0.6 1.0 06/18/19 06/18/19 06/19/19 00:00 17:30 05:58 ABG pH 7.40 ABG HCO3 19.9 L ABG O2 Sat (Measured) 98.3 H Sodium 138 Potassium 4.1 Chloride 106 Carbon Dioxide 22 Anion Gap 10 BUN 26.0 H Creatinine 1.4 H 1.5 H Imaging - Results Chest X-ray: Report Reviewed Problem List - Problems (1) EUGENIO (acute kidney injury) Code(s): N17.9 - ACUTE KIDNEY FAILURE, UNSPECIFIED (2) Acute decompensated heart failure Code(s): I50.9 - HEART FAILURE, UNSPECIFIED (3) Rapid atrial fibrillation Code(s): I48.91 - UNSPECIFIED ATRIAL FIBRILLATION Assessment/Plan Current Medications Generic Name Dose Route Start Last Admin Trade Name Freq PRN Reason Stop Dose Admin Apixaban 5 mg 06/18/19 10:45 06/19/19 11:22 Eliquis - PO 5 mg BID SU Administration Chlorhexidine Gluconate 1 applic 06/18/19 22:00 06/18/19 21:02 Hibiclens For Decolonization - TP 1 applic HS SU Administration Docusate Sodium 100 mg 06/19/19 10:45 06/19/19 11:22 Colace - PO 100 mg BID SU Administration Guaifenesin 10 ml 06/19/19 08:04 Diabetic Tussin Dm - PO Q4H PRN COUGH Ceftriaxone Sodium 1 gm/ 50 mls @ 100 mls/hr 06/19/19 10:45 06/19/19 11:22 Dextrose IVPB 100 mls/hr DAILY SU Administration Protocol Metoprolol Succinate 25 mg 06/19/19 11:45 06/19/19 12:50 Toprol Xl - PO 25 mg BID SU Administration Metoprolol Tartrate 5 mg 06/19/19 11:33 06/19/19 11:42 Lopressor Injection - IVPUSH 5 mg Q5M PRN Administration TACHYCARDIA Mupirocin 1 applic 06/18/19 10:00 06/19/19 11:33 Bactroban Ointment (For Decolonization) - NS 06/23/19 09:59 1 applic BID SU Administration Pantoprazole Sodium 40 mg 06/18/19 10:00 06/19/19 11:20 Protonix Iv IVPUSH 40 mg DAILY SU Administration Polyethylene Glycol 17 gm 06/19/19 10:45 06/19/19 12:51 Miralax (For Daily Use) - PO 17 grams BID SU Administration Laboratory Tests 06/18/19 04:00 Urine Protein Negative Urine Blood Negative Impression 1. EUGENIO 2. hematuria 3. a-fib 4. asthma 5. HTN 6. hx DVT Plan - repeat labs in am - check ua, urine pharmacist and urine lytes - check renal ultrasound - avoid nsaids - pt did get contrast a few days ago - avoid nephrotoxins
[2019-06-19] MEDS: FUROSEMIDE 40 MG/4 ML INJECTABLE VIAL IVPUSH SCH (18:41)
[2019-06-19] MEDS: DOCUSATE SODIUM 100 MG CAPSULE (FP) PO SCH (21:56)
[2019-06-19] MEDS: POLYETHYLENE GLYCOL 3350 119 GM BTL PO SCH (21:57)
[2019-06-19] MEDS: metoPROLOL SUCCINATE 25 MG TAB.SR.24H (FP) PO SCH (21:57)
[2019-06-19 22:58] LABS: EPI CELLS 12.7 /HPF (0-5/HPF); PH,URINE 5.5 (5.0-8.0); URINE APPEARANCE CLOUDY; URINE BACTERIA 6.5 /hpf (NEGATIVE); URINE BILIRUBIN NEGATIVE (NEGATIVE); URINE COLOR YELLOW; URINE GLUCOSE (UA) NEGATIVE (NEGATIVE); URINE KETONE NEGATIVE (NEGATIVE); URINE LEUK ESTERASE 1+ (NEGATIVE); URINE NITRITE NEGATIVE (NEGATIVE); URINE PROTEIN 2+ (NEGATIVE); URINE RBC 399 /hpf (0-4); URINE WBC 26 /hpf (0-5)
[2019-06-20 00:07] LABS: HYALINE CASTS 3 /lpf (0-8)
--- NOTE | 2019-06-20 00:07 | PN ---
Progress Note, Physician Chief Complaint: PT alert; denies chest pain, + dyspnea on mild exertion; no palpitations or dizziness. History of Present Illness: 79 yo woman with PMHx AF, HTN, diastolic CHF, severe pulmonary HTN; moderate aortic regurgitation, who arrives in AF with RVR. patient given Cardizem 15 mg prior to arrival with little effect Additional bolus of 15 mg was given upon arrival to the emergency department due to persistently elevated rate, patient had momentary decrease to approximately 80 bpm with decreased blood pressure of 88 systolic A small fluid bolus of 250 mL was given with rapid return to normal blood pressure chest x-ray as well as CTA of the chest were performed which showed congestive changes right side much more significant on the left with pleural effusions present There are no other indicators to suggest pneumonia. BNP is elevated Patient currently on a Cardizem drip at 5 mg an hour, Lasix 40 mg given IV pushfor gentle diuresis Patient currently on BiPAP due to increased work of breathing She is clinically improved though still somewhat labored - Current Medication List Current Medications: Active Medications Apixaban (Eliquis -) 5 mg PO BID [facility] Last Admin: 06/19/19 21:57 Dose: 5 mg Docusate Sodium (Colace -) 100 mg PO BID [facility] Last Admin: 06/19/19 21:56 Dose: Not Given Guaifenesin (Diabetic Tussin Dm -) 10 ml PO Q4H PRN PRN Reason: COUGH Ceftriaxone Sodium 1 gm/ (Dextrose) 50 mls @ 100 mls/hr IVPB DAILY [facility]; Protocol Metoprolol Succinate (Toprol Xl -) 25 mg PO BID [facility] Last Admin: 06/19/19 21:57 Dose: 25 mg Pantoprazole Sodium (Protonix Iv) 40 mg IVPUSH DAILY [facility] Polyethylene Glycol (Miralax (For Daily Use) -) 17 gm PO BID [facility] Last Admin: 06/19/19 21:57 Dose: Not Given - Objective Vital Signs: Vital Signs Temperature 97.9 F 06/19/19 21:54 Pulse Rate 77 06/19/19 21:54 Respiratory Rate 20 06/19/19 21:54 Blood Pressure 108/86 06/19/19 21:54 O2 Sat by Pulse Oximetry (%) 97 06/19/19 09:00 Constitutional: Yes: Calm Eyes: Yes: WNL Neck: Yes: WNL Cardiovascular: Yes: S1 (varies in intensity), S2 Respiratory: Yes: Regular Gastrointestinal: Yes: Soft ...Rectal Exam: Yes: Deferred Genitourinary: No: Anuria Breast(s): Yes: WNL Musculoskeletal: Yes: Muscle Weakness Extremities: Yes: Cool Edema: No Peripheral Pulses WNL: Yes Integumentary: Yes: WNL Neurological: Yes: Alert, Weakness Psychiatric: Yes: Alert Labs: CBC, BMP 06/19/19 05:58 06/19/19 05:58 INR, PTT INR Cancelled 06/17/19 20:17 Abnormal Lab Results 06/19/19 06/20/19 22:00 06:03 BUN 34.6 H Creatinine 1.4 H Total Protein 5.9 L Albumin 2.9 L Ur Random Creatinine 152.0 H Ur Random Sodium 6 L Ur Random Chloride < 11 L - ....Imaging Chest X-ray: Image Reviewed EKG: Image Reviewed Other: Image Reviewed (telemetry: AF) Problem List - Problems (1) Acute on chronic diastolic (congestive) heart failure Assessment/Plan: On metoprolol ER. Furosemide prn F/u Is and Os, daily weight, electtrolytes, BUN/Cr. Code(s): I50.33 - ACUTE ON CHRONIC DIASTOLIC (CONGESTIVE) HEART FAILURE (2) Rapid atrial fibrillation Assessment/Plan: On metoprolol ER for HR control. Use DOAC for anticoagulation, e.g. apixaban (f/u changes in renal status) Code(s): I48.91 - UNSPECIFIED ATRIAL FIBRILLATION (3) Severe pulmonary arterial systolic hypertension Code(s): I27.21 - SECONDARY PULMONARY ARTERIAL HYPERTENSION (4) Moderate aortic regurgitation Code(s): I35.1 - NONRHEUMATIC AORTIC (VALVE) INSUFFICIENCY Assessment/Plan CCU time spent: 35 minutes
[2019-06-20 06:52] LABS: BASO % 0.2 % (0-2.0); EOS % 0.4 % (0-4.5); HEMATOCRIT 33.3 % (32.4-45.2); HEMOGLOBIN 11.3 GM/dL (10.7-15.3); LYMPH % 25.1 % (8-40); MCH 31.8 pg (25.7-33.7); MEAN CELL VOLUME 93.5 fl (80-96); MEAN PLT VOLUME 8.8 fl (7.5-11.1); MONO % 9.3 % (3.8-10.2); PLATELET COUNT 211 K/MM3 (134-434); RBC 3.56 M/mm3 (3.60-5.2); RDW 13.6 % (11.6-15.6); WHITE BLOOD COUNT 10.5 K/mm3 (4.0-10.0)
[2019-06-20] MEDS: ACETAMINOPHEN 325 MG TABLET (FP) PO PRN ×3 (07:02→21:53)
[2019-06-20 07:35] LABS: ALBUMIN 2.9 g/dl (3.4-5.0); BILIRUBIN,TOTAL 0.8 mg/dL (0.2-1); BLOOD UREA NITROGEN 34.6 mg/dL (7-18); CALCIUM 8.9 mg/dL (8.5-10.1); CREATININE 1.4 mg/dL (0.55-1.3); MAGNESIUM 2.1 mg/dL (1.8-2.4); PHOSPHOROUS 4.6 mg/dL (2.5-4.9); POTASSIUM 4.2 mmol/L (3.5-5.1); TOT PROT 5.9 g/dl (6.4-8.2)
[2019-06-20] MEDS ORDERED: cefTRIAXone SODIUM 1 GM VIAL ONE (09:33)
[2019-06-20] MEDS ORDERED: DEXTROSE 5%-WATER - 50 ML IVPB ONE (09:34)
[2019-06-20] MEDS: metoPROLOL SUCCINATE 25 MG TAB.SR.24H (FP) PO SCH ×2 (09:38→21:53)
[2019-06-20] MEDS: DOCUSATE SODIUM 100 MG CAPSULE (FP) PO SCH ×2 (09:38→21:54)
[2019-06-20] MEDS: PANTOPRAZOLE SODIUM 40 MG VIAL IVPUSH SCH (09:38)
[2019-06-20] MEDS: CEFTRIAXONE 1 GM in DEXTROSE 5%-WATER - 50 ML IVPB SCH (09:38)
[2019-06-20] MEDS: APIXABAN 5 MG TABLET PO SCH ×2 (09:38→21:53)
[2019-06-20] MEDS: POLYETHYLENE GLYCOL 3350 119 GM BTL PO SCH ×2 (09:39→21:54)
[2019-06-20] MEDS ORDERED: PT OWN MED DRAWER 7, Y5N ONE (09:41)
--- NOTE | 2019-06-20 10:29 | PN ---
Progress Note (short form) - Note Progress Note: pt seen/ examined chart reviewed awake/ comfortable feels better Vital Signs Temp 97.7 F 06/20/19 08:39 Pulse 102 H 06/20/19 08:39 Resp 20 06/20/19 08:39 BP 118/53 L 06/20/19 08:39 Pulse Ox 96 06/20/19 08:39 Intake & Output 06/19/19 06/19/19 06/20/19 11:59 23:59 11:59 Intake Total 240 240 200 Output Total 100 130 300 Balance 140 110 -100 Weight 147 lb 11.2 oz 148 lb 12.8 oz Intake: Oral 240 240 200 Output: Urine 100 130 300 Rush 100 130 300 Other: Voiding Method Indwelling Catheter Indwelling Catheter Indwelling Catheter Bowel Movement No Yes Yes # Bowel Movements 1 Weight Measurement Method Built in Bedscale Standing Scale Active Medications Acetaminophen (Tylenol -) 650 mg PO Q6H PRN PRN Reason: PAIN LEVEL 6-10 Last Admin: 06/20/19 07:02 Dose: 650 mg Apixaban (Eliquis -) 5 mg PO BID [facility] Last Admin: 06/20/19 09:38 Dose: 5 mg Docusate Sodium (Colace -) 100 mg PO BID [facility] Last Admin: 06/20/19 09:38 Dose: Not Given Guaifenesin (Diabetic Tussin Dm -) 10 ml PO Q4H PRN PRN Reason: COUGH Ceftriaxone Sodium 1 gm/ (Dextrose) 50 mls @ 100 mls/hr IVPB DAILY [facility]; Protocol Last Admin: 06/20/19 09:38 Dose: 100 mls/hr Metoprolol Succinate (Toprol Xl -) 25 mg PO BID [facility] Last Admin: 06/20/19 09:38 Dose: 25 mg Pantoprazole Sodium (Protonix Iv) 40 mg IVPUSH DAILY [facility] Last Admin: 06/20/19 09:38 Dose: 40 mg Polyethylene Glycol (Miralax (For Daily Use) -) 17 gm PO BID [facility] Last Admin: 06/20/19 09:39 Dose: Not Given CBC, BMP 06/20/19 06:03 06/20/19 06:03 CMP Sodium 138 mmol/L (136-145) 06/20/19 06:03 Potassium 4.2 mmol/L (3.5-5.1) 06/20/19 06:03 Chloride 106 mmol/L (98-107) 06/20/19 06:03 Carbon Dioxide 23 mmol/L (21-32) 06/20/19 06:03 Anion Gap 9 MMOL/L (8-16) 06/20/19 06:03 BUN 34.6 mg/dL (7-18) H 06/20/19 06:03 Creatinine 1.4 mg/dL (0.55-1.3) H 06/20/19 06:03 Est GFR (CKD-EPI)AfAm 40.74 06/20/19 06:03 Est GFR (CKD-EPI)NonAf 35.15 06/20/19 06:03 Random Glucose 94 mg/dL (74-106) 06/20/19 06:03 Lactic Acid 1.7 mmol/L (0.4-2.0) 06/18/19 01:51 Calcium 8.9 mg/dL (8.5-10.1) 06/20/19 06:03 Phosphorus 4.6 mg/dL (2.5-4.9) 06/20/19 06:03 Magnesium 2.1 mg/dL (1.8-2.4) 06/20/19 06:03 Total Bilirubin 0.8 mg/dL (0.2-1) 06/20/19 06:03 AST 31 U/L (15-37) 06/20/19 06:03 ALT 21 U/L (13-61) 06/20/19 06:03 Alkaline Phosphatase 94 U/L (45-117) 06/20/19 06:03 Creatine Kinase 107 U/L (26-192) 06/17/19 20:45 Troponin I < 0.02 ng/ml (0.00-0.05) 06/18/19 05:45 B-Natriuretic Peptide 3211.7 pg/ml (5-450) H 06/17/19 20:45 Total Protein 5.9 g/dl (6.4-8.2) L 06/20/19 06:03 Albumin 2.9 g/dl (3.4-5.0) L 06/20/19 06:03 TSH 3.41 uIU/ml (0.358-3.74) 06/18/19 01:51 Abnormal Lab Results 06/19/19 06/19/19 06/20/19 22:00 22:00 06:03 WBC 10.5 H RBC 3.56 L BUN Creatinine Total Protein Albumin Urine Protein 2+ H Urine Blood 3+ H Ur Leukocyte Esterase 1+ H Ur Random Creatinine 152.0 H Ur Random Sodium 6 L Ur Random Chloride < 11 L 06/20/19 06:03 WBC RBC BUN 34.6 H Creatinine 1.4 H Total Protein 5.9 L Albumin 2.9 L Urine Protein Urine Blood Ur Leukocyte Esterase Ur Random Creatinine Ur Random Sodium Ur Random Chloride Microbiology 06/19/19 22:00 Legionella Antigen - Final Urine - Urine Rush Streptococcus pneumoniae Antigen (M - Final 06/18/19 04:00 Urine Culture - Final Urine - Urine Rush NO GROWTH OBTAINED Physical S1 S2 irregular Systolic murmur+ Lungs decreased,crackles+ at bases Abd-soft, NT edema+ rush+ PLAN better eliquis BID with caution-- urine some reddish in bag continue present care abx f/u cultures/ labs daily oob- chair will follow d/w RN also. Problem List - Problems (1) UTI (urinary tract infection) Code(s): N39.0 - URINARY TRACT INFECTION, SITE NOT SPECIFIED (2) Hematuria Code(s): R31.9 - HEMATURIA, UNSPECIFIED (3) Acute decompensated heart failure Code(s): I50.9 - HEART FAILURE, UNSPECIFIED (4) Moderate aortic regurgitation Code(s): I35.1 - NONRHEUMATIC AORTIC (VALVE) INSUFFICIENCY (5) Rapid atrial fibrillation Code(s): I48.91 - UNSPECIFIED ATRIAL FIBRILLATION (6) Severe pulmonary arterial systolic hypertension Code(s): I27.21 - SECONDARY PULMONARY ARTERIAL HYPERTENSION
--- NOTE | 2019-06-20 10:53 | PN ---
Progress Note (short form) - Note Progress Note: PULMONARY AWAKE/LYING SUPINE ON NASAL O2/ESPINAL IN PLACE BIPAP AT BEDSIDE VSS/SPO2 96 3L/M NASAL O2 ANICTERIC B/L DIFFUSE CRACKLES S1S2 IRREG VARYING RATES BS+ NONTENDER NO EDEMA S/P L TKR MEDS/LABS/IMAGES/NOTES REVIEWED ASSESSMENT AND PLAN: New Onset Atrial Fibrillation with RVR Acute Diastolic Heart Failure Severe Mitral Regurgitation Severe Aortic Stenosis Acute Kidney Injury h/o DVT s/p IVC filter HTN Hyperlipidemia h/o PUD - rate control - beta blockers - diuretics as needed - monitor urine output, creatinine - continue anticoagulation - empiric antibiotics started yesterday - O2 to keep Spo2 >90% - monitor CXR Virginia ALATORRE MD
--- NOTE | 2019-06-20 12:23 | PN ---
Progress Note, Physician History of Present Illness: Pt seen and examined at bedside. She is awake and alert. She feels that her breathing is improved today. She denies chest pain. - Current Medication List Current Medications: Active Medications Acetaminophen (Tylenol -) 650 mg PO Q6H PRN PRN Reason: PAIN LEVEL 6-10 Last Admin: 06/20/19 07:02 Dose: 650 mg Apixaban (Eliquis -) 5 mg PO BID [facility] Last Admin: 06/20/19 09:38 Dose: 5 mg Docusate Sodium (Colace -) 100 mg PO BID [facility] Last Admin: 06/20/19 09:38 Dose: Not Given Guaifenesin (Diabetic Tussin Dm -) 10 ml PO Q4H PRN PRN Reason: COUGH Ceftriaxone Sodium 1 gm/ (Dextrose) 50 mls @ 100 mls/hr IVPB DAILY [facility]; Protocol Last Admin: 06/20/19 09:38 Dose: 100 mls/hr Metoprolol Succinate (Toprol Xl -) 25 mg PO BID [facility] Last Admin: 06/20/19 09:38 Dose: 25 mg Pantoprazole Sodium (Protonix Iv) 40 mg IVPUSH DAILY [facility] Last Admin: 06/20/19 09:38 Dose: 40 mg Polyethylene Glycol (Miralax (For Daily Use) -) 17 gm PO BID [facility] Last Admin: 06/20/19 09:39 Dose: Not Given - Objective Vital Signs: Vital Signs Temperature 97.7 F 06/20/19 08:39 Pulse Rate 102 H 06/20/19 08:39 Respiratory Rate 20 06/20/19 08:39 Blood Pressure 118/53 L 06/20/19 08:39 O2 Sat by Pulse Oximetry (%) 96 06/20/19 08:39 Constitutional: Yes: Calm Eyes: Yes: Conjunctiva Clear HENT: Yes: Atraumatic Neck: Yes: Supple Cardiovascular: Yes: S1, S2 Respiratory: Yes: CTA Bilaterally, On Nasal O2 Gastrointestinal: Yes: Soft, Abdomen, Obese Genitourinary: Yes: Youngblood Present, Hematuria Musculoskeletal: Yes: WNL Edema: No Neurological: Yes: Oriented Psychiatric: Yes: Oriented Labs: CBC, BMP 06/20/19 06:03 06/20/19 06:03 INR, PTT INR Cancelled 06/17/19 20:17 Problem List - Problems (1) EUGENIO (acute kidney injury) Code(s): N17.9 - ACUTE KIDNEY FAILURE, UNSPECIFIED (2) Acute decompensated heart failure Code(s): I50.9 - HEART FAILURE, UNSPECIFIED (3) Rapid atrial fibrillation Code(s): I48.91 - UNSPECIFIED ATRIAL FIBRILLATION Assessment/Plan Current Medications Generic Name Dose Route Start Last Admin Trade Name Freq PRN Reason Stop Dose Admin Acetaminophen 650 mg 06/20/19 06:54 06/20/19 07:02 Tylenol - PO 650 mg Q6H PRN Administration PAIN LEVEL 6-10 Apixaban 5 mg 06/19/19 22:00 06/20/19 09:38 Eliquis - PO 5 mg BID SU Administration Docusate Sodium 100 mg 06/19/19 22:00 06/20/19 09:38 Colace - PO Not Given BID SU Guaifenesin 10 ml 06/19/19 18:40 Diabetic Tussin Dm - PO Q4H PRN COUGH Ceftriaxone Sodium 1 gm/ 50 mls @ 100 mls/hr 06/20/19 10:00 06/20/19 09:38 Dextrose IVPB 100 mls/hr DAILY SU Administration Protocol Metoprolol Succinate 25 mg 06/19/19 22:00 06/20/19 09:38 Toprol Xl - PO 25 mg BID SU Administration Pantoprazole Sodium 40 mg 06/20/19 10:00 06/20/19 09:38 Protonix Iv IVPUSH 40 mg DAILY SU Administration Polyethylene Glycol 17 gm 06/19/19 22:00 06/20/19 09:39 Miralax (For Daily Use) - PO Not Given BID SU Impression 1. EUGENIO 2. hematuria 3. a-fib 4. asthma 5. HTN 6. hx DVT Plan - urine studies reviewed - emergency department technician is starting to improve - would hold off lasix today - repeat labs in am - urine output is starting to improve - hematuria is improving as well - avoid nsaids - avoid nephrotoxins
[2019-06-21 07:45] LABS: BASO % 0.4 % (0-2.0); HEMATOCRIT 35.2 % (32.4-45.2); HEMOGLOBIN 11.7 GM/dL (10.7-15.3); LYMPH % 22.6 % (8-40); MCH 31.5 pg (25.7-33.7); MCHC 33.2 g/dl (32.0-36.0); MEAN CELL VOLUME 94.7 fl (80-96); MEAN PLT VOLUME 8.7 fl (7.5-11.1); MONO % 13.9 % (3.8-10.2); NEUT % 60.1 % (42.8-82.8); PLATELET COUNT 227 K/MM3 (134-434); RBC 3.71 M/mm3 (3.60-5.2); RDW 13.9 % (11.6-15.6); WHITE BLOOD COUNT 6.7 K/mm3 (4.0-10.0)
[2019-06-21 08:04] LABS: ALBUMIN 2.8 g/dl (3.4-5.0); BILIRUBIN,TOTAL 0.6 mg/dL (0.2-1); BLOOD UREA NITROGEN 27.8 mg/dL (7-18); CALCIUM 8.7 mg/dL (8.5-10.1); CREATININE 1.1 mg/dL (0.55-1.3); POTASSIUM 3.9 mmol/L (3.5-5.1); TOT PROT 5.4 g/dl (6.4-8.2)
--- NOTE | 2019-06-21 08:25 | PN ---
Progress Note, Physician History of Present Illness: 79 y.o. F PMH HTN, HLD, GERD, prior DVT, peptic ulcer disease, asthma presenting with progressively worsening dyspnea on exertion for 2-3 days duration. Pt says that she has never felt this SOB in the past. She tried her home nebulizers for her asthma to help with the SOB but had no improvement of symptoms. Patient also c/o sharp 9/10 back pain that has been present since . En route to the hospital EMS noted pt was in A-fib w/ RVR in the 130s and -- subsequently gave 15mg Cardizem with no change in status. In the ED, patient given another 15mg Cardizem IV, Lasix 40mg IV, medrol 125mg and LR 250mL bolus d/t BP drop to 80s/50s with improvement of symptoms. On ROS denies CP/ DYER/ fevers/ chills/ nausea/ vomiting/ urinary changes/bowel changes/ wt changes. ER course was notable for: (1) CXR: congestion R>L & pleural effusions (2) Chest CTA: No PE, no aortic aneurysm dissection (3) tachy to 135; afebrile - Current Medication List Current Medications: Active Medications Acetaminophen (Tylenol -) 650 mg PO Q6H PRN PRN Reason: PAIN LEVEL 6-10 Last Admin: 06/20/19 21:53 Dose: 650 mg Apixaban (Eliquis -) 5 mg PO BID [facility] BEDS AT [facility] Last Admin: 06/20/19 21:53 Dose: 5 mg Docusate Sodium (Colace -) 100 mg PO BID [facility] 234 BEDS AT [facility] Last Admin: 06/20/19 21:54 Dose: Not Given Guaifenesin (Diabetic Tussin Dm -) 10 ml PO Q4H PRN PRN Reason: COUGH Ceftriaxone Sodium 1 gm/ (Dextrose) 50 mls @ 100 mls/hr IVPB DAILY [facility] 234 BEDS AT [facility]; Protocol Last Admin: 06/20/19 09:38 Dose: 100 mls/hr Metoprolol Succinate (Toprol Xl -) 25 mg PO BID [facility] 234 B[facility]S AT [facility] Last Admin: 06/20/19 21:53 Dose: 25 mg Pantoprazole Sodium (Protonix Iv) 40 mg IVPUSH DAILY [facility] 234 BEDS AT [facility] Last Admin: 06/20/19 09:38 Dose: 40 mg Polyethylene Glycol (Miralax (For Daily Use) -) 17 gm PO BID [facility] 234 B[facility]S [facility] Last Admin: 10/04/19 21:54 Dose: Not Given - Objective Vital Signs: Vital Signs Temperature 98 F 06/21/19 06:00 Pulse Rate 82 06/21/19 06:00 Respiratory Rate 20 06/21/19 06:00 Blood Pressure 115/69 06/21/19 06:00 O2 Sat by Pulse Oximetry (%) 98 06/20/19 21:24 Eyes: Yes: WNL, Conjunctiva Clear, EOM Intact HENT: Yes: WNL, Atraumatic, Normocephalic Neck: Yes: WNL, Supple, Trachea Midline Cardiovascular: Yes: WNL, Regular Rate and Rhythm Respiratory: Yes: Diminished, On BiPap Gastrointestinal: Yes: WNL, Normal Bowel Sounds Genitourinary: Yes: WNL Musculoskeletal: Yes: WNL Extremities: Yes: WNL Edema: No Integumentary: Yes: WNL Neurological: Yes: WNL, Alert, Oriented ...Motor Strength: WNL Psychiatric: Yes: WNL Labs: CBC, BMP 06/21/19 06:39 06/21/19 06:39 INR, PTT INR Cancelled 06/17/19 20:17 Problem List - Problems (1) Acute decompensated heart failure Code(s): I50.9 - HEART FAILURE, UNSPECIFIED (2) Rapid atrial fibrillation Code(s): I48.91 - UNSPECIFIED ATRIAL FIBRILLATION Assessment/Plan Problem List - Problems (1) Acute on chronic diastolic (congestive) heart failure Assessment/Plan: On metoprolol ER. Furosemide prn F/u Is and Os, daily weight, electtrolytes, BUN/Cr. Code(s): I50.33 - ACUTE ON CHRONIC DIASTOLIC (CONGESTIVE) HEART FAILURE (2) Rapid atrial fibrillation Assessment/Plan: On metoprolol ER for HR control. Use DOAC for anticoagulation, e.g. apixaban (f/u changes in renal status) Code(s): I48.91 - UNSPECIFIED ATRIAL FIBRILLATION (3) Severe pulmonary arterial systolic hypertension Code(s): I27.21 - SECONDARY PULMONARY ARTERIAL HYPERTENSION (4) Moderate aortic regurgitation Code(s): I35.1 - NONRHEUMATIC AORTIC (VALVE) INSUFFICIENCY
[2019-06-21] MEDS ORDERED: DEXTROSE 5%-WATER - 100 ML IVPB ONE (09:00)
[2019-06-21] MEDS ORDERED: cefTRIAXone SODIUM 1 GM VIAL ONE (09:00)
[2019-06-21] MEDS: ACETAMINOPHEN 325 MG TABLET (FP) PO PRN ×2 (09:25→21:36)
[2019-06-21] MEDS: guaiFENesin/D-M SUGAR-FREE/ACLHOL-FREE 118 ML BOTTLE PO PRN (09:26)
[2019-06-21] MEDS: POLYETHYLENE GLYCOL 3350 119 GM BTL PO SCH ×2 (09:26→21:37)
[2019-06-21] MEDS: APIXABAN 5 MG TABLET PO SCH ×2 (09:27→21:36)
[2019-06-21] MEDS: DOCUSATE SODIUM 100 MG CAPSULE (FP) PO SCH ×2 (09:27→21:37)
[2019-06-21] MEDS: metoPROLOL SUCCINATE 25 MG TAB.SR.24H (FP) PO SCH ×2 (09:27→21:36)
[2019-06-21] MEDS: CEFTRIAXONE 1 GM in DEXTROSE 5%-WATER - 50 ML IVPB SCH (09:32)
[2019-06-21] MEDS: PANTOPRAZOLE SODIUM 40 MG VIAL IVPUSH SCH (09:33)
--- NOTE | 2019-06-21 10:45 | PN ---
Progress Note (short form) - Note Progress Note: PULMONARY AWAKE/LYING SUPINE ON NASAL O2/ESPINAL IN PLACE BIPAP AT BEDSIDE/USED ALL NIGHT VSS/SPO2 97 3L/M NASAL O2 ANICTERIC B/L DIFFUSE CRACKLES S1S2 IRREG VARYING RATES BS+ NONTENDER NO EDEMA S/P L TKR RIGHT IV SITE ERYTHEMA MEDS/LABS/IMAGES/NOTES REVIEWED ASSESSMENT AND PLAN: New Onset Atrial Fibrillation with RVR Acute Diastolic Heart Failure Severe Mitral Regurgitation Severe Aortic Stenosis Acute Kidney Injury h/o DVT s/p IVC filter HTN Hyperlipidemia h/o PUD - rate control - beta blockers - diuretics as needed - monitor urine output, creatinine - continue anticoagulation - empiric antibiotics started - O2 to keep Spo2 >90% - monitor CXR Virginia ALATORRE MD
--- NOTE | 2019-06-21 12:14 | PN ---
Progress Note (short form) - Note Progress Note: Pt examined events noted no sob sitting up in bed still has rush Vital Signs - 24 hr 06/20/19 06/20/19 06/20/19 13:56 18:00 19:38 Temperature 97.7 F 97.0 F L Pulse Rate 102 H 118 H Respiratory 22 H 20 Rate Blood Pressure 93/62 113/78 O2 Sat by Pulse 98 Oximetry (%) 06/20/19 06/20/19 06/20/19 21:00 21:24 22:00 Temperature 98.6 F Pulse Rate 100 H Respiratory 20 Rate Blood Pressure 105/69 O2 Sat by Pulse 94 L 98 Oximetry (%) 06/21/19 06/21/19 06/21/19 02:00 06:00 09:00 Temperature 97.9 F 98 F Pulse Rate 107 H 82 Respiratory 20 20 Rate Blood Pressure 110/88 115/69 O2 Sat by Pulse 95 Oximetry (%) 06/21/19 10:00 Temperature 98.6 F Pulse Rate 97 H Respiratory 20 Rate Blood Pressure 113/81 O2 Sat by Pulse Oximetry (%) Current Medications Generic Name Dose Route Start Last Admin Trade Name Freq PRN Reason Stop Dose Admin Acetaminophen 650 mg 06/20/19 06:54 06/21/19 09:25 Tylenol - PO 650 mg Q6H PRN Administration PAIN LEVEL 6-10 Apixaban 5 mg 06/19/19 22:00 06/21/19 09:27 Eliquis - PO 5 mg BID SU Administration Docusate Sodium 100 mg 06/19/19 22:00 06/21/19 09:27 Colace - PO 100 mg BID SU Administration Guaifenesin 10 ml 06/19/19 18:40 06/21/19 09:26 Diabetic Tussin Dm - PO 10 ml Q4H PRN Administration COUGH Ceftriaxone Sodium 1 gm/ 50 mls @ 100 mls/hr 06/20/19 10:00 06/21/19 09:32 Dextrose IVPB 100 mls/hr DAILY SU Administration Protocol Metoprolol Succinate 25 mg 06/19/19 22:00 06/21/19 09:27 Toprol Xl - PO 25 mg BID SU Administration Pantoprazole Sodium 40 mg 06/20/19 10:00 06/21/19 09:33 Protonix Iv IVPUSH 40 mg DAILY SU Administration Polyethylene Glycol 17 gm 06/19/19 22:00 06/21/19 09:26 Miralax (For Daily Use) - PO 17 gm BID SU Administration Laboratory Results - last 24 hr 06/21/19 06/21/19 06:39 06:39 WBC 6.7 RBC 3.71 Hgb 11.7 Hct 35.2 MCV 94.7 MCH 31.5 MCHC 33.2 RDW 13.9 Plt Count 227 MPV 8.7 Absolute Neuts (auto) 4.0 Neutrophils % 60.1 Lymphocytes % 22.6 Monocytes % 13.9 H Eosinophils % 3.0 D Basophils % 0.4 Nucleated RBC % 0 Sodium 142 Potassium 3.9 Chloride 109 H Carbon Dioxide 26 Anion Gap 7 L BUN 27.8 H Creatinine 1.1 Est GFR (CKD-EPI)AfAm 54.53 Est GFR (CKD-EPI)NonAf 47.05 Random Glucose 85 Calcium 8.7 Total Bilirubin 0.6 AST 29 ALT 21 Alkaline Phosphatase 97 Total Protein 5.4 L Albumin 2.8 L S1 S2 irregular Systolic murmur+ Lungs decreased,crackles+ Abd-soft, NT edema+ PLAN dc rush rate is controlled continue with meds OOB daily Problem List - Problems (1) Acute decompensated heart failure Code(s): I50.9 - HEART FAILURE, UNSPECIFIED (2) Rapid atrial fibrillation Code(s): I48.91 - UNSPECIFIED ATRIAL FIBRILLATION
--- NOTE | 2019-06-21 14:22 | PN ---
Progress Note (short form) - Note Progress Note: RENAL Pt is awake and alert her son is by the bedside Last Vital Signs Temp Pulse Resp BP Pulse Ox 98 F 97 H 20 109/70 95 06/21/19 13:31 06/21/19 13:31 06/21/19 13:31 06/21/19 13:31 06/21/19 09:00 lungs few crackles cvs s1s2 irregular abd soft ext no edema neuro a+ox3 CBC, BMP 06/21/19 06:39 06/21/19 06:39 Current Medications Generic Name Dose Route Start Last Admin Trade Name Freq PRN Reason Stop Dose Admin Acetaminophen 650 mg 06/20/19 06:54 06/21/19 09:25 Tylenol - PO 650 mg Q6H PRN Administration PAIN LEVEL 6-10 Apixaban 5 mg 06/19/19 22:00 06/21/19 09:27 Eliquis - PO 5 mg BID SU Administration Docusate Sodium 100 mg 06/19/19 22:00 06/21/19 09:27 Colace - PO 100 mg BID SU Administration Guaifenesin 10 ml 06/19/19 18:40 06/21/19 09:26 Diabetic Tussin Dm - PO 10 ml Q4H PRN Administration COUGH Ceftriaxone Sodium 1 gm/ 50 mls @ 100 mls/hr 06/20/19 10:00 06/21/19 09:32 Dextrose IVPB 100 mls/hr DAILY SU Administration Protocol Metoprolol Succinate 25 mg 06/19/19 22:00 06/21/19 09:27 Toprol Xl - PO 25 mg BID SU Administration Pantoprazole Sodium 40 mg 06/20/19 10:00 06/21/19 09:33 Protonix Iv IVPUSH 40 mg DAILY SU Administration Polyethylene Glycol 17 gm 06/19/19 22:00 06/21/19 09:26 Miralax (For Daily Use) - PO 17 gm BID SU Administration Impression 1. EUGENIO with low urine sodium and has improved already 2. hematuria- trauma related? 3. a-fib 4. asthma 5. HTN 6. hx DVT Plan she is better but will need to have an evaluation by urology of her hematuria if its persistent encourage fluids repeat chest xray MV
[2019-06-22] MEDS: ACETAMINOPHEN 325 MG TABLET (FP) PO PRN ×3 (07:30→19:55)
--- NOTE | 2019-06-22 08:36 | PN ---
Progress Note, Physician History of Present Illness: 79 y.o. F PMH HTN, HLD, GERD, prior DVT, peptic ulcer disease, asthma presenting with progressively worsening dyspnea on exertion for 2-3 days duration. Pt says that she has never felt this SOB in the past. She tried her home nebulizers for her asthma to help with the SOB but had no improvement of symptoms. Patient also c/o sharp 9/10 back pain that has been present since . En route to the hospital EMS noted pt was in A-fib w/ RVR in the 130s and -- subsequently gave 15mg Cardizem with no change in status. In the ED, patient given another 15mg Cardizem IV, Lasix 40mg IV, medrol 125mg and LR 250mL bolus d/t BP drop to 80s/50s with improvement of symptoms. On ROS denies CP/ DYER/ fevers/ chills/ nausea/ vomiting/ urinary changes/bowel changes/ wt changes. ER course was notable for: (1) CXR: congestion R>L & pleural effusions (2) Chest CTA: No PE, no aortic aneurysm dissection (3) tachy to 135; afebrile - Current Medication List Current Medications: Active Medications Acetaminophen (Tylenol -) 650 mg PO Q6H PRN PRN Reason: PAIN LEVEL 6-10 Last Admin: 06/21/19 21:36 Dose: 650 mg Apixaban (Eliquis -) 5 mg PO BID [facility] Last Admin: 06/21/19 21:36 Dose: 5 mg Docusate Sodium (Colace -) 100 mg PO BID [facility] Last Admin: 06/21/19 21:37 Dose: Not Given Guaifenesin (Diabetic Tussin Dm -) 10 ml PO Q4H PRN PRN Reason: COUGH Last Admin: 06/21/19 09:26 Dose: 10 ml Ceftriaxone Sodium 1 gm/ (Dextrose) 50 mls @ 100 mls/hr IVPB DAILY [facility]; Protocol Last Admin: 06/21/19 09:32 Dose: 100 mls/hr Metoprolol Succinate (Toprol Xl -) 25 mg PO BID [facility] Last Admin: 06/21/19 21:36 Dose: 25 mg Pantoprazole Sodium (Protonix Iv) 40 mg IVPUSH DAILY [facility] Last Admin: 06/21/19 09:33 Dose: 40 mg Polyethylene Glycol (Miralax (For Daily Use) -) 17 gm PO BID SU Last Admin: 06/21/19 21:37 Dose: Not Given - Objective Vital Signs: Vital Signs Temperature 98.2 F 06/22/19 06:00 Pulse Rate 106 H 06/22/19 06:00 Respiratory Rate 20 06/22/19 06:00 Blood Pressure 123/46 L 06/22/19 06:00 O2 Sat by Pulse Oximetry (%) 100 06/21/19 23:11 Eyes: Yes: WNL, Conjunctiva Clear, EOM Intact HENT: Yes: WNL, Atraumatic, Normocephalic Neck: Yes: WNL, Supple, Trachea Midline Cardiovascular: Yes: WNL, Regular Rate and Rhythm Respiratory: Yes: WNL, Regular, CTA Bilaterally Gastrointestinal: Yes: WNL, Normal Bowel Sounds Genitourinary: Yes: WNL Musculoskeletal: Yes: WNL Extremities: Yes: WNL Edema: No Integumentary: Yes: WNL Neurological: Yes: WNL, Alert, Oriented ...Motor Strength: WNL Psychiatric: Yes: WNL Labs: CBC, BMP 06/21/19 06:39 06/21/19 06:39 INR, PTT INR Cancelled 06/17/19 20:17 Problem List - Problems (1) Acute decompensated heart failure Code(s): I50.9 - HEART FAILURE, UNSPECIFIED (2) Rapid atrial fibrillation Code(s): I48.91 - UNSPECIFIED ATRIAL FIBRILLATION Assessment/Plan Problem List - Problems (1) Acute on chronic diastolic (congestive) heart failure Assessment/Plan: On metoprolol ER. Furosemide prn F/u Is and Os, daily weight, electtrolytes, BUN/Cr. Code(s): I50.33 - ACUTE ON CHRONIC DIASTOLIC (CONGESTIVE) HEART FAILURE (2) Rapid atrial fibrillation Assessment/Plan: On metoprolol ER for HR control. Use DOAC for anticoagulation, e.g. apixaban (f/u changes in renal status) Code(s): I48.91 - UNSPECIFIED ATRIAL FIBRILLATION (3) Severe pulmonary arterial systolic hypertension Code(s): I27.21 - SECONDARY PULMONARY ARTERIAL HYPERTENSION (4) Moderate aortic regurgitation Code(s): I35.1 - NONRHEUMATIC AORTIC (VALVE) INSUFFICIENCY
[2019-06-22] MEDS ORDERED: cefTRIAXone SODIUM 1 GM VIAL ONE (09:09)
[2019-06-22] MEDS ORDERED: DEXTROSE 5%-WATER - 50 ML IVPB ONE (09:09)
[2019-06-22] MEDS: metoPROLOL SUCCINATE 25 MG TAB.SR.24H (FP) PO SCH ×2 (09:17→21:23)
[2019-06-22] MEDS: APIXABAN 5 MG TABLET PO SCH ×2 (09:17→21:24)
[2019-06-22] MEDS: POLYETHYLENE GLYCOL 3350 119 GM BTL PO SCH ×2 (09:17→21:23)
[2019-06-22] MEDS: CEFTRIAXONE 1 GM in DEXTROSE 5%-WATER - 50 ML IVPB SCH (09:17)
[2019-06-22] MEDS: DOCUSATE SODIUM 100 MG CAPSULE (FP) PO SCH ×2 (09:17→21:23)
[2019-06-22] MEDS: PANTOPRAZOLE SODIUM 40 MG VIAL IVPUSH SCH (09:17)
--- NOTE | 2019-06-22 09:59 | CON.GU ---
Consult - History of Present Illness History of Present Illness: 79 yo female with recent afib and started on anticoagulation with Eliquus. Some hematuria noted initially in rush bag. Rush has since been removed. Pt currently voiding without any hematuria. No dysuria. Renal and bladder sono without any pathology - Past Medical History Cardio/Vascular: Yes: HTN, Hyperlipdemia, Other (dvt) Pulmonary: Yes: Asthma Gastrointestinal: Yes: GERD - Alcohol/Substance Use Hx Alcohol Use: No - Smoking History Smoking history: Never smoked Aproximately how many cigarettes per day: 0 Home Medications - Allergies Allergies/Adverse Reactions: Allergies Allergy/AdvReac Type Severity Reaction Status Date / Time No Known Allergies Allergy Verified 06/17/19 19:42 - Home Medications Home Medications: Ambulatory Orders Acetaminophen [Tylenol .Regular Strength -] 650 mg PO Q6H PRN #0 tablet Pantoprazole Sodium [Protonix -] 40 mg PO BID #30 tablet.ec 06/23/13 Amlodipine Besylate [Norvasc -] 10 mg PO DAILY 06/18/19 Review of Systems - Review of Systems Genitourinary: reports: Hematuria Physical Exam- Vital Signs: Vital Signs Temperature 98.2 F 06/22/19 06:00 Pulse Rate 97 H 06/22/19 09:26 Respiratory Rate 20 06/22/19 09:26 Blood Pressure 115/80 06/22/19 09:26 O2 Sat by Pulse Oximetry (%) 100 06/21/19 23:11 Renal/: Yes: WNL Labs: CBC, BMP 06/21/19 06:39 06/21/19 06:39 Imaging - Results Ultrasound: Report Reviewed Problem List - Problems (1) Hematuria Assessment/Plan: hematuria with Eliquus and rush now resolved. Normal renal and bladder sono. No further eval needed unless hematuria recurs Code(s): R31.9 - HEMATURIA, UNSPECIFIED
--- NOTE | 2019-06-22 10:46 | PN ---
Progress Note (short form) - Note Progress Note: PULMONARY AWAKE/LYING SUPINE ON NASAL O2/ESPINAL IN PLACE BIPAP AT BEDSIDE/USED ALL NIGHT CONTINUES TO IMPROVE VSS/SPO2 97 3L/M NASAL O2 ANICTERIC B/L DIFFUSE CRACKLES S1S2 IRREG VARYING RATES BS+ NONTENDER NO EDEMA S/P L TKR RIGHT IV SITE ERYTHEMA MEDS/LABS/IMAGES/NOTES REVIEWED ASSESSMENT AND PLAN: New Onset Atrial Fibrillation with RVR Acute Diastolic Heart Failure Severe Mitral Regurgitation Severe Aortic Stenosis Acute Kidney Injury h/o DVT s/p IVC filter HTN Hyperlipidemia h/o PUD - rate control - beta blockers - diuretics as needed - monitor urine output, creatinine - continue anticoagulation - empiric antibiotics started - O2 to keep Spo2 >90% - monitor CXR - note reviewed Virginia ALATORRE MD
--- NOTE | 2019-06-22 10:47 | PN ---
Progress Note (short form) - Note Progress Note: Pt examined events noted no sob sitting up in bed rush removed Urinating well no complaints Vital Signs - 24 hr 06/21/19 06/21/19 06/21/19 18:00 21:00 22:00 Temperature 97.6 F 97.5 F L Pulse Rate 108 H 110 H Respiratory 20 20 Rate Blood Pressure 111/72 121/76 O2 Sat by Pulse 97 Oximetry (%) 06/21/19 06/22/19 06/22/19 23:11 01:50 06:00 Temperature 98.5 F 98.2 F Pulse Rate 125 H 106 H Respiratory 20 20 Rate Blood Pressure 91/64 123/46 L O2 Sat by Pulse 100 Oximetry (%) 06/22/19 06/22/19 06/22/19 09:00 09:26 14:25 Temperature 97.9 F Pulse Rate 97 H 111 H Respiratory 20 18 Rate Blood Pressure 115/80 128/74 O2 Sat by Pulse 98 Oximetry (%) Current Medications Generic Name Dose Route Start Last Admin Trade Name Freq PRN Reason Stop Dose Admin Acetaminophen 650 mg 06/20/19 06:54 06/22/19 14:02 Tylenol - PO 650 mg Q6H PRN Administration PAIN LEVEL 6-10 Apixaban 5 mg 06/19/19 22:00 06/22/19 09:17 Eliquis - PO 5 mg BID SU Administration Docusate Sodium 100 mg 06/19/19 22:00 06/22/19 09:17 Colace - PO Not Given BID SU Guaifenesin 10 ml 06/19/19 18:40 06/21/19 09:26 Diabetic Tussin Dm - PO 10 ml Q4H PRN Administration COUGH Ceftriaxone Sodium 1 gm/ 50 mls @ 100 mls/hr 06/20/19 10:00 06/22/19 09:17 Dextrose IVPB 100 mls/hr DAILY SU Administration Protocol Metoprolol Succinate 25 mg 06/19/19 22:00 06/22/19 09:17 Toprol Xl - PO 25 mg BID SU Administration Pantoprazole Sodium 40 mg 06/20/19 10:00 06/22/19 09:17 Protonix Iv IVPUSH 40 mg DAILY SU Administration Polyethylene Glycol 17 gm 06/19/19 22:00 06/22/19 09:17 Miralax (For Daily Use) - PO Not Given BID SU S1 S2 irregular Systolic murmur+ Lungs decreased,crackles+ Abd-soft, NT edema+ PLAN PT eval rate is controlled continue with meds OOB daily evlaluated pt-- no further hematuria-- no work up dc planning Problem List - Problems (1) Acute decompensated heart failure Code(s): I50.9 - HEART FAILURE, UNSPECIFIED (2) Rapid atrial fibrillation Code(s): I48.91 - UNSPECIFIED ATRIAL FIBRILLATION
--- NOTE | 2019-06-22 12:09 | PN ---
Progress Note (short form) - Note Progress Note: RENAL Pt is awake and alert feels better rush was removed and urinates freely Last Vital Signs Temp Pulse Resp BP Pulse Ox 98.2 F 97 H 20 115/80 100 06/22/19 06:00 06/22/19 09:26 06/22/19 09:26 06/22/19 09:26 06/21/19 23:11 lying at 30 degrees comfortably lungs few crackles cvs s1s2 irregular abd soft ext no edema neuro a+ox3 CBC, BMP 06/21/19 06:39 06/21/19 06:39 Current Medications Generic Name Dose Route Start Last Admin Trade Name Freq PRN Reason Stop Dose Admin Acetaminophen 650 mg 06/20/19 06:54 06/22/19 07:30 Tylenol - PO 650 mg Q6H PRN Administration PAIN LEVEL 6-10 Apixaban 5 mg 06/19/19 22:00 06/22/19 09:17 Eliquis - PO 5 mg BID SU Administration Docusate Sodium 100 mg 06/19/19 22:00 06/22/19 09:17 Colace - PO Not Given BID SU Guaifenesin 10 ml 06/19/19 18:40 06/21/19 09:26 Diabetic Tussin Dm - PO 10 ml Q4H PRN Administration COUGH Ceftriaxone Sodium 1 gm/ 50 mls @ 100 mls/hr 06/20/19 10:00 06/22/19 09:17 Dextrose IVPB 100 mls/hr DAILY SU Administration Protocol Metoprolol Succinate 25 mg 06/19/19 22:00 06/22/19 09:17 Toprol Xl - PO 25 mg BID SU Administration Pantoprazole Sodium 40 mg 06/20/19 10:00 06/22/19 09:17 Protonix Iv IVPUSH 40 mg DAILY SU Administration Polyethylene Glycol 17 gm 06/19/19 22:00 06/22/19 09:17 Miralax (For Daily Use) - PO Not Given BID SU Impression 1. EUGENIO with low urine sodium and has improved already 2. hematuria- trauma related? 3. a-fib 4. asthma 5. HTN 6. hx DVT Plan she is better but will need to have an evaluation by urology of her hematuria if its persistent encourage fluids repeat chest xray repeat bmp MV
[2019-06-23] MEDS: ACETAMINOPHEN 325 MG TABLET (FP) PO PRN ×3 (04:32→22:13)
[2019-06-23 07:14] LABS: BASO % 0.8 % (0-2.0); EOS % 5.8 % (0-4.5); HEMATOCRIT 34.3 % (32.4-45.2); HEMOGLOBIN 11.4 GM/dL (10.7-15.3); LYMPH % 38.9 % (8-40); MCH 31.1 pg (25.7-33.7); MCHC 33.3 g/dl (32.0-36.0); MEAN CELL VOLUME 93.3 fl (80-96); MEAN PLT VOLUME 8.5 fl (7.5-11.1); MONO % 13.8 % (3.8-10.2); NEUT % 40.7 % (42.8-82.8); PLATELET COUNT 233 K/MM3 (134-434); RBC 3.67 M/mm3 (3.60-5.2); RDW 13.5 % (11.6-15.6); WHITE BLOOD COUNT 5.8 K/mm3 (4.0-10.0)
[2019-06-23 07:25] LABS: BLOOD UREA NITROGEN 15.8 mg/dL (7-18); CALCIUM 8.5 mg/dL (8.5-10.1); CREATININE 0.8 mg/dL (0.55-1.3)
--- NOTE | 2019-06-23 08:32 | PN ---
Progress Note, Physician Chief Complaint: PT without chest pain,palpitations, or dyspnea. History of Present Illness: 79 yo woman with PMHx AF, HTN, diastolic CHF, severe pulmonary HTN; moderate aortic regurgitation, who arrives in AF with RVR. patient given Cardizem 15 mg prior to arrival with little effect Additional bolus of 15 mg was given upon arrival to the emergency department due to persistently elevated rate, patient had momentary decrease to approximately 80 bpm with decreased blood pressure of 88 systolic A small fluid bolus of 250 mL was given with rapid return to normal blood pressure chest x-ray as well as CTA of the chest were performed which showed congestive changes right side much more significant on the left with pleural effusions present There are no other indicators to suggest pneumonia. BNP is elevated Patient currently on a Cardizem drip at 5 mg an hour, Lasix 40 mg given IV pushfor gentle diuresis Patient currently on BiPAP due to increased work of breathing She is clinically improved though still somewhat labored - Current Medication List Current Medications: Active Medications Acetaminophen (Tylenol -) 650 mg PO Q6H PRN PRN Reason: PAIN LEVEL 6-10 Last Admin: 06/23/19 04:32 Dose: 650 mg Apixaban (Eliquis -) 5 mg PO BID [facility] Last Admin: 06/22/19 21:24 Dose: 5 mg Docusate Sodium (Colace -) 100 mg PO BID [facility] Last Admin: 06/22/19 21:23 Dose: Not Given Guaifenesin (Diabetic Tussin Dm -) 10 ml PO Q4H PRN PRN Reason: COUGH Last Admin: 06/21/19 09:26 Dose: 10 ml Ceftriaxone Sodium 1 gm/ (Dextrose) 50 mls @ 100 mls/hr IVPB DAILY [facility]; Protocol Last Admin: 06/22/19 09:17 Dose: 100 mls/hr Metoprolol Succinate (Toprol Xl -) 25 mg PO BID [facility] Last Admin: 06/22/19 21:23 Dose: 25 mg Pantoprazole Sodium (Protonix Iv) 40 mg IVPUSH DAILY [facility] Last Admin: 06/22/19 09:17 Dose: 40 mg Polyethylene Glycol (Miralax (For Daily Use) -) 17 gm PO BID [facility] Last Admin: 06/22/19 21:23 Dose: Not Given - Objective Vital Signs: Vital Signs Temperature 97.0 F L 06/23/19 04:51 Pulse Rate 109 H 06/23/19 04:51 Respiratory Rate 20 06/23/19 04:51 Blood Pressure 117/70 06/23/19 04:51 O2 Sat by Pulse Oximetry (%) 98 06/22/19 21:00 Constitutional: Yes: No Distress Eyes: Yes: WNL HENT: Yes: WNL Neck: Yes: WNL Cardiovascular: Yes: Tachycardia, Pulse Irregular, S1 (varies in intentisy), S2 Respiratory: Yes: Diminished Gastrointestinal: Yes: Soft ...Rectal Exam: Yes: Deferred Genitourinary: No: Anuria Breast(s): Yes: WNL Musculoskeletal: Yes: Muscle Weakness Extremities: Yes: Cool Edema: No Peripheral Pulses WNL: Yes Integumentary: Yes: WNL Neurological: Yes: Alert, Oriented, Weakness Psychiatric: Yes: Alert, Oriented Labs: CBC, BMP 06/23/19 06:14 06/23/19 06:14 INR, PTT INR Cancelled 06/17/19 20:17 - ....Imaging Chest X-ray: Image Reviewed Cat Scan: Image Reviewed EKG: Image Reviewed Other: Image Reviewed (telemetry: AF with periods of RVR) Problem List - Problems (1) Acute on chronic diastolic (congestive) heart failure Code(s): I50.33 - ACUTE ON CHRONIC DIASTOLIC (CONGESTIVE) HEART FAILURE (2) Rapid atrial fibrillation Code(s): I48.91 - UNSPECIFIED ATRIAL FIBRILLATION (3) Severe pulmonary arterial systolic hypertension Code(s): I27.21 - SECONDARY PULMONARY ARTERIAL HYPERTENSION (4) Moderate aortic regurgitation Code(s): I35.1 - NONRHEUMATIC AORTIC (VALVE) INSUFFICIENCY (5) Severe aortic stenosis Code(s): I35.0 - NONRHEUMATIC AORTIC (VALVE) STENOSIS
[2019-06-23] MEDS ORDERED: DEXTROSE 5%-WATER - 50 ML IVPB ONE ×2 (09:14→12:34)
[2019-06-23] MEDS ORDERED: cefTRIAXone SODIUM 1 GM VIAL ONE ×2 (09:14→12:33)
[2019-06-23] MEDS: DOCUSATE SODIUM 100 MG CAPSULE (FP) PO SCH ×2 (10:11→22:14)
[2019-06-23] MEDS: APIXABAN 5 MG TABLET PO SCH ×2 (10:11→22:12)
[2019-06-23] MEDS: PANTOPRAZOLE SODIUM 40 MG VIAL IVPUSH SCH (10:11)
[2019-06-23] MEDS: metoPROLOL SUCCINATE 25 MG TAB.SR.24H (FP) PO SCH (10:11)
[2019-06-23] MEDS: POLYETHYLENE GLYCOL 3350 119 GM BTL PO SCH ×2 (10:13→22:14)
--- NOTE | 2019-06-23 11:03 | PN ---
Progress Note, Physician History of Present Illness: 79 y.o. F PMH HTN, HLD, GERD, prior DVT, peptic ulcer disease, asthma presenting with progressively worsening dyspnea on exertion for 2-3 days duration. Pt says that she has never felt this SOB in the past. She tried her home nebulizers for her asthma to help with the SOB but had no improvement of symptoms. Patient also c/o sharp 9/10 back pain that has been present since . En route to the hospital EMS noted pt was in A-fib w/ RVR in the 130s and -- subsequently gave 15mg Cardizem with no change in status. In the ED, patient given another 15mg Cardizem IV, Lasix 40mg IV, medrol 125mg and LR 250mL bolus d/t BP drop to 80s/50s with improvement of symptoms. On ROS denies CP/ DYER/ fevers/ chills/ nausea/ vomiting/ urinary changes/bowel changes/ wt changes. ER course was notable for: (1) CXR: congestion R>L & pleural effusions (2) Chest CTA: No PE, no aortic aneurysm dissection (3) tachy to 135; afebrile - Current Medication List Current Medications: Active Medications Acetaminophen (Tylenol -) 650 mg PO Q6H PRN PRN Reason: PAIN LEVEL 6-10 Last Admin: 06/23/19 10:11 Dose: 650 mg Apixaban (Eliquis -) 5 mg PO BID [facility] Last Admin: 06/23/19 10:11 Dose: 5 mg Docusate Sodium (Colace -) 100 mg PO BID [facility] Last Admin: 06/23/19 10:11 Dose: 100 mg Guaifenesin (Diabetic Tussin Dm -) 10 ml PO Q4H PRN PRN Reason: COUGH Last Admin: 06/21/19 09:26 Dose: 10 ml Metoprolol Succinate (Toprol Xl -) 25 mg PO BID [facility] Last Admin: 06/23/19 10:11 Dose: 25 mg Pantoprazole Sodium (Protonix Iv) 40 mg IVPUSH DAILY [facility] Last Admin: 06/23/19 10:11 Dose: 40 mg Polyethylene Glycol (Miralax (For Daily Use) -) 17 gm PO BID [facility] Last Admin: 06/23/19 10:13 Dose: 17 gm - Objective Vital Signs: Vital Signs Temperature 97.0 F L 10/07/19 04:51 Pulse Rate 109 H 06/23/19 04:51 Respiratory Rate 20 06/23/19 04:51 Blood Pressure 117/70 06/23/19 04:51 O2 Sat by Pulse Oximetry (%) 98 06/23/19 09:00 Eyes: Yes: WNL, Conjunctiva Clear, EOM Intact HENT: Yes: WNL, Atraumatic, Normocephalic Neck: Yes: WNL, Supple, Trachea Midline Cardiovascular: Yes: WNL, Regular Rate and Rhythm Respiratory: Yes: WNL, Regular, CTA Bilaterally Gastrointestinal: Yes: WNL, Normal Bowel Sounds Genitourinary: Yes: WNL Musculoskeletal: Yes: WNL Extremities: Yes: WNL Edema: No Integumentary: Yes: WNL Neurological: Yes: WNL, Alert, Oriented ...Motor Strength: WNL Psychiatric: Yes: WNL Labs: CBC, BMP 06/23/19 06:14 06/23/19 06:14 INR, PTT INR Cancelled 06/17/19 20:17 Problem List - Problems (1) Acute decompensated heart failure Code(s): I50.9 - HEART FAILURE, UNSPECIFIED (2) Rapid atrial fibrillation Code(s): I48.91 - UNSPECIFIED ATRIAL FIBRILLATION Assessment/Plan Problem List - Problems (1) Acute on chronic diastolic (congestive) heart failure Assessment/Plan: On metoprolol ER. Furosemide prn F/u Is and Os, daily weight, electtrolytes, BUN/Cr. Code(s): I50.33 - ACUTE ON CHRONIC DIASTOLIC (CONGESTIVE) HEART FAILURE (2) Rapid atrial fibrillation Assessment/Plan: On metoprolol ER for HR control. Use DOAC for anticoagulation, e.g. apixaban (f/u changes in renal status) Code(s): I48.91 - UNSPECIFIED ATRIAL FIBRILLATION (3) Severe pulmonary arterial systolic hypertension Code(s): I27.21 - SECONDARY PULMONARY ARTERIAL HYPERTENSION (4) Moderate aortic regurgitation Code(s): I35.1 - NONRHEUMATIC AORTIC (VALVE) INSUFFICIENCY
--- NOTE | 2019-06-23 12:20 | PN ---
Progress Note (short form) - Note Progress Note: pt seen/ examined chart reviewed feels better decreased sob denies cp HR still elevated Vital Signs Temp 98.1 F 06/23/19 09:00 Pulse 100 H 06/23/19 09:00 Resp 18 06/23/19 09:00 BP 122/64 06/23/19 09:00 Pulse Ox 98 06/23/19 09:00 Intake & Output 06/22/19 06/23/19 06/23/19 23:59 11:59 23:59 Intake Total 640 Balance 640 Intake: IVPB 50 Oral 590 Other: Voiding Method Bedside Commode Bedside Commode # Unmeasured Voids Void 2 2 Bowel Movement No Yes # Bowel Movements 1 Active Medications Acetaminophen (Tylenol -) 650 mg PO Q6H PRN PRN Reason: PAIN LEVEL 6-10 Last Admin: 06/23/19 10:11 Dose: 650 mg Apixaban (Eliquis -) 5 mg PO BID [facility] Last Admin: 06/23/19 10:11 Dose: 5 mg Docusate Sodium (Colace -) 100 mg PO BID [facility] Last Admin: 06/23/19 10:11 Dose: 100 mg Guaifenesin (Diabetic Tussin Dm -) 10 ml PO Q4H PRN PRN Reason: COUGH Last Admin: 06/21/19 09:26 Dose: 10 ml Ceftriaxone Sodium 1 gm/ (Dextrose) 50 mls @ 200 mls/hr IVPB DAILY [facility]; Protocol Metoprolol Succinate (Toprol Xl -) 50 mg PO BID [facility] Pantoprazole Sodium (Protonix Iv) 40 mg IVPUSH DAILY [facility] Last Admin: 06/23/19 10:11 Dose: 40 mg Polyethylene Glycol (Miralax (For Daily Use) -) 17 gm PO BID [facility] Last Admin: 06/23/19 10:13 Dose: 17 gm CBC, BMP 06/23/19 06:14 06/23/19 06:14 Physical Exam S1 S2 irregular Systolic murmur+ Lungs-- Diminished at bases Abd-soft, NT edema+ a/p Increase Metoprolol oob - chair repeat cxr Continue abx for Pneumonia if better - consider d/c in am change i/v protonix to po will follow Problem List - Problems (1) UTI (urinary tract infection) Problems reviewed: Yes Code(s): N39.0 - URINARY TRACT INFECTION, SITE NOT SPECIFIED (2) Hematuria Problems reviewed: Yes Code(s): R31.9 - HEMATURIA, UNSPECIFIED (3) Acute decompensated heart failure Code(s): I50.9 - HEART FAILURE, UNSPECIFIED (4) Moderate aortic regurgitation Code(s): I35.1 - NONRHEUMATIC AORTIC (VALVE) INSUFFICIENCY (5) Rapid atrial fibrillation Code(s): I48.91 - UNSPECIFIED ATRIAL FIBRILLATION (6) Severe pulmonary arterial systolic hypertension Code(s): I27.21 - SECONDARY PULMONARY ARTERIAL HYPERTENSION
[2019-06-23] MEDS: CEFTRIAXONE 1 GM in DEXTROSE 5%-WATER - 50 ML IVPB SCH (12:40)
[2019-06-23] MEDS ORDERED: FUROSEMIDE 40 MG TABLET (FP) PO ONE (13:39)
--- NOTE | 2019-06-23 13:39 | PN ---
Progress Note, Physician History of Present Illness: Pt seen and examined at bedside. She is awake and alert. She complains of some congestion and a cough today. - Current Medication List Current Medications: Active Medications Acetaminophen (Tylenol -) 650 mg PO Q6H PRN PRN Reason: PAIN LEVEL 6-10 Last Admin: 06/23/19 10:11 Dose: 650 mg Apixaban (Eliquis -) 5 mg PO BID [facility] Last Admin: 06/23/19 10:11 Dose: 5 mg Docusate Sodium (Colace -) 100 mg PO BID [facility] Last Admin: 06/23/19 10:11 Dose: 100 mg Guaifenesin (Diabetic Tussin Dm -) 10 ml PO Q4H PRN PRN Reason: COUGH Last Admin: 06/21/19 09:26 Dose: 10 ml Ceftriaxone Sodium 1 gm/ (Dextrose) 50 mls @ 100 mls/hr IVPB DAILY [facility]; Protocol Last Admin: 06/23/19 12:40 Dose: 100 mls/hr Metoprolol Succinate (Toprol Xl -) 50 mg PO BID [facility] Last Admin: 06/23/19 12:40 Dose: 50 mg Pantoprazole Sodium (Protonix -) 40 mg PO DAILY [facility] Polyethylene Glycol (Miralax (For Daily Use) -) 17 gm PO BID [facility] Last Admin: 06/23/19 10:13 Dose: 17 gm - Objective Vital Signs: Vital Signs Temperature 98.1 F 06/23/19 09:00 Pulse Rate 100 H 06/23/19 09:00 Respiratory Rate 18 06/23/19 09:00 Blood Pressure 122/64 06/23/19 09:00 O2 Sat by Pulse Oximetry (%) 98 06/23/19 09:00 Constitutional: Yes: Calm Eyes: Yes: Conjunctiva Clear HENT: Yes: Atraumatic Neck: Yes: Supple Cardiovascular: Yes: S1, S2 Gastrointestinal: Yes: Soft, Abdomen, Obese Genitourinary: Yes: WNL Musculoskeletal: Yes: WNL Edema: Yes Edema: LLE: Trace, RLE: Trace Neurological: Yes: Oriented Psychiatric: Yes: Oriented Labs: CBC, BMP 06/23/19 06:14 06/23/19 06:14 INR, PTT INR Cancelled 06/17/19 20:17 Problem List - Problems (1) EUGENIO (acute kidney injury) Code(s): N17.9 - ACUTE KIDNEY FAILURE, UNSPECIFIED (2) Acute decompensated heart failure Code(s): I50.9 - HEART FAILURE, UNSPECIFIED (3) Rapid atrial fibrillation Code(s): I48.91 - UNSPECIFIED ATRIAL FIBRILLATION Assessment/Plan Current Medications Generic Name Dose Route Start Last Admin Trade Name Freq PRN Reason Stop Dose Admin Acetaminophen 650 mg 06/20/19 06:54 06/23/19 10:11 Tylenol - PO 650 mg Q6H PRN Administration PAIN LEVEL 6-10 Apixaban 5 mg 06/19/19 22:00 06/23/19 10:11 Eliquis - PO 5 mg BID SU Administration Docusate Sodium 100 mg 06/19/19 22:00 06/23/19 10:11 Colace - PO 100 mg BID SU Administration Guaifenesin 10 ml 06/19/19 18:40 06/21/19 09:26 Diabetic Tussin Dm - PO 10 ml Q4H PRN Administration COUGH Ceftriaxone Sodium 1 gm/ 50 mls @ 100 mls/hr 06/23/19 12:30 06/23/19 12:40 Dextrose IVPB 100 mls/hr DAILY SU Administration Protocol Metoprolol Succinate 50 mg 06/23/19 12:30 06/23/19 12:40 Toprol Xl - PO 50 mg BID SU Administration Pantoprazole Sodium 40 mg 06/24/19 10:00 Protonix - PO DAILY SU Polyethylene Glycol 17 gm 06/19/19 22:00 06/23/19 10:13 Miralax (For Daily Use) - PO 17 gm BID SU Administration Impression 1. EUGENIO 2. hematuria 3. a-fib 4. asthma 5. HTN 6. hx DVT Plan - renal function is improved - can get a dose of po lasix - monitor labs - cxr reviewed - avoid nsaids - avoid nephrotoxins
--- NOTE | 2019-06-23 14:27 | PN ---
Progress Note (short form) - Note Progress Note: Feels better today. Less SOB. No CP. No acute events overnight. Intake & Output 06/20/19 06/21/19 06/22/19 06/23/19 23:59 23:59 23:59 23:59 Intake Total 1255 740 760 600 Output Total 1500 1850 100 Balance -245 -1110 660 600 Weight 148 lb 12.8 oz 147 lb Last Vital Signs Temp Pulse Resp BP Pulse Ox 98.1 F 109 H 18 122/64 98 06/23/19 13:52 06/23/19 13:52 06/23/19 13:52 06/23/19 09:00 06/23/19 09:00 Active Medications Acetaminophen (Tylenol -) 650 mg PO Q6H PRN PRN Reason: PAIN LEVEL 6-10 Last Admin: 06/23/19 10:11 Dose: 650 mg Apixaban (Eliquis -) 5 mg PO BID [facility] Last Admin: 06/23/19 10:11 Dose: 5 mg Docusate Sodium (Colace -) 100 mg PO BID [facility] Last Admin: 06/23/19 10:11 Dose: 100 mg Guaifenesin (Diabetic Tussin Dm -) 10 ml PO Q4H PRN PRN Reason: COUGH Last Admin: 06/21/19 09:26 Dose: 10 ml Ceftriaxone Sodium 1 gm/ (Dextrose) 50 mls @ 100 mls/hr IVPB DAILY [facility]; Protocol Last Admin: 06/23/19 12:40 Dose: 100 mls/hr Metoprolol Succinate (Toprol Xl -) 50 mg PO BID [facility] Last Admin: 06/23/19 12:40 Dose: 50 mg Pantoprazole Sodium (Protonix -) 40 mg PO DAILY [facility] Polyethylene Glycol (Miralax (For Daily Use) -) 17 gm PO BID [facility] Last Admin: 06/23/19 10:13 Dose: 17 gm O2 ANICTERIC B/L DIFFUSE CRACKLES S1S2 IRREG VARYING RATES BS+ NONTENDER NO EDEMA S/P L TKR Laboratory Results - last 24 hr 06/23/19 06/23/19 06:14 06:14 WBC 5.8 RBC 3.67 Hgb 11.4 Hct 34.3 MCV 93.3 MCH 31.1 MCHC 33.3 RDW 13.5 Plt Count 233 MPV 8.5 Absolute Neuts (auto) 2.4 Neutrophils % 40.7 L D Lymphocytes % 38.9 D Monocytes % 13.8 H Eosinophils % 5.8 H D Basophils % 0.8 Nucleated RBC % 0 Sodium 145 Potassium 4.0 Chloride 111 H Carbon Dioxide 25 Anion Gap 9 BUN 15.8 Creatinine 0.8 Est GFR (CKD-EPI)AfAm 80.14 Est GFR (CKD-EPI)NonAf 69.14 Random Glucose 80 Calcium 8.5 ASSESSMENT AND PLAN: New Onset Atrial Fibrillation with RVR Acute Diastolic Heart Failure Severe Mitral Regurgitation Severe Aortic Stenosis Acute Kidney Injury h/o DVT s/p IVC filter HTN Hyperlipidemia h/o PUD - rate control - beta blockers - diuretics as needed - monitor urine output, creatinine - continue anticoagulation - empiric antibiotics started - O2 to keep Spo2 >90% Dr Orozco
[2019-06-23] MEDS ORDERED: PT OWN MED DRAWER 7, Y5N ONE ×2 (14:46→19:49)
[2019-06-23] MEDS: guaiFENesin/D-M SUGAR-FREE/ACLHOL-FREE 118 ML BOTTLE PO PRN ×2 (14:53→22:14)
[2019-06-24] MEDS: ACETAMINOPHEN 325 MG TABLET (FP) PO PRN ×3 (04:27→18:04)
[2019-06-24 07:37] LABS: BLOOD UREA NITROGEN 16.5 mg/dL (7-18); CALCIUM 8.4 mg/dL (8.5-10.1); CREATININE 0.8 mg/dL (0.55-1.3); POTASSIUM 4.2 mmol/L (3.5-5.1)
[2019-06-24] MEDS ORDERED: cefTRIAXone SODIUM 1 GM VIAL ONE (09:20)
[2019-06-24] MEDS ORDERED: DEXTROSE 5%-WATER - 50 ML IVPB ONE (09:20)
[2019-06-24] MEDS: CEFTRIAXONE 1 GM in DEXTROSE 5%-WATER - 50 ML IVPB SCH (09:23)
[2019-06-24] MEDS: DOCUSATE SODIUM 100 MG CAPSULE (FP) PO SCH (09:23)
[2019-06-24] MEDS: POLYETHYLENE GLYCOL 3350 119 GM BTL PO SCH (09:23)
[2019-06-24] MEDS: APIXABAN 5 MG TABLET PO SCH (09:23)
[2019-06-24] MEDS ORDERED: PANTOPRAZOLE 40 MG TABLET (FP) PO SCH (10:00)
--- NOTE | 2019-06-24 12:34 | PN ---
Progress Note, Physician History of Present Illness: pulmonary alert,feeling better,less dyspneic - Current Medication List Current Medications: Active Medications Acetaminophen (Tylenol -) 650 mg PO Q6H PRN PRN Reason: PAIN LEVEL 6-10 Last Admin: 06/24/19 11:32 Dose: 650 mg Apixaban (Eliquis -) 5 mg PO BID [facility] Last Admin: 06/24/19 09:23 Dose: 5 mg Docusate Sodium (Colace -) 100 mg PO BID [facility] Last Admin: 06/24/19 09:23 Dose: Not Given Guaifenesin (Diabetic Tussin Dm -) 10 ml PO Q4H PRN PRN Reason: COUGH Last Admin: 06/23/19 22:14 Dose: 10 ml Ceftriaxone Sodium 1 gm/ (Dextrose) 50 mls @ 100 mls/hr IVPB DAILY [facility]; Protocol Last Admin: 06/24/19 09:23 Dose: 100 mls/hr Metoprolol Succinate (Toprol Xl -) 50 mg PO BID [facility] Last Admin: 06/24/19 09:23 Dose: 50 mg Pantoprazole Sodium (Protonix -) 40 mg PO DAILY [facility] Last Admin: 06/24/19 09:23 Dose: 40 mg Polyethylene Glycol (Miralax (For Daily Use) -) 17 gm PO BID [facility] Last Admin: 06/24/19 09:23 Dose: Not Given - Objective Vital Signs: Vital Signs Temperature 98.4 F 06/24/19 08:38 Pulse Rate 105 H 06/24/19 08:38 Respiratory Rate 20 06/24/19 08:38 Blood Pressure 119/79 06/24/19 08:38 O2 Sat by Pulse Oximetry (%) 95 06/24/19 08:02 Constitutional: Yes: Well Nourished, Calm Eyes: Yes: WNL HENT: Yes: WNL Neck: Yes: WNL Cardiovascular: Yes: Pulse Irregular, S1, S2 Respiratory: Yes: Rales (bilatereal crackles,-wheezes) Gastrointestinal: Yes: Normal Bowel Sounds Extremities: Yes: WNL Edema: No Labs: 06/24/19 06:06 INR, PTT INR Cancelled 06/17/19 20:17 Problem List - Problems (1) Acute decompensated heart failure Code(s): I50.9 - HEART FAILURE, UNSPECIFIED (2) Acute on chronic diastolic (congestive) heart failure Code(s): I50.33 - ACUTE ON CHRONIC DIASTOLIC (CONGESTIVE) HEART FAILURE (3) Rapid atrial fibrillation Code(s): I48.91 - UNSPECIFIED ATRIAL FIBRILLATION (4) Severe aortic stenosis Code(s): I35.0 - NONRHEUMATIC AORTIC (VALVE) STENOSIS (5) Severe pulmonary arterial systolic hypertension Code(s): I27.21 - SECONDARY PULMONARY ARTERIAL HYPERTENSION Assessment/Plan ASSESSMENT AND PLAN: New Onset Atrial Fibrillation with RVR Acute Diastolic Heart Failure Severe Mitral Regurgitation Severe Aortic Stenosis Acute Kidney Injury h/o DVT s/p IVC filter HTN Hyperlipidemia h/o PUD - rate control - beta blockers - diuretics as needed - monitor urine output, creatinine - anticoagulation - empiric antibiotics started - O2 to keep Spo2 >90% - f/u chests x-ray DR SANDERS
--- NOTE | 2019-06-24 14:46 | DS ---
Physical Examination Vital Signs: Vital Signs Temperature 98.4 F 06/24/19 08:38 Pulse Rate 105 H 06/24/19 08:38 Respiratory Rate 20 06/24/19 08:38 Blood Pressure 119/79 06/24/19 08:38 O2 Sat by Pulse Oximetry (%) 95 06/24/19 08:02 Constitutional: Yes: No Distress Cardiovascular: Yes: Regular Rate and Rhythm Respiratory: Yes: Diminished Gastrointestinal: Yes: Normal Bowel Sounds, Soft. No: Tenderness Edema: Yes Edema: LLE: Trace, RLE: Trace Labs: CBC, BMP 06/23/19 06:14 06/24/19 06:06 Discharge Summary Problems reviewed: Yes Reason For Visit: ACUTE ON CHRONIC CONGESTIVE HEART FAILURE Current Active Problems Acute decompensated heart failure (Acute) Acute on chronic diastolic (congestive) heart failure (Acute) Hematuria (Acute) Moderate aortic regurgitation (Acute) Rapid atrial fibrillation (Acute) Severe aortic stenosis (Acute) Severe pulmonary arterial systolic hypertension (Acute) UTI (urinary tract infection) (Acute) Hospital Course: PCP: non- [facility] Dr. Calderón HISTORY OF PRESENT ILLNESS: 79 y.o. F PMH HTN, HLD, GERD, prior DVT, peptic ulcer disease, asthma presenting with progressively worsening dyspnea on exertion for 2-3 days duration. Pt says that she has never felt this SOB in the past. She tried her home nebulizers for her asthma to help with the SOB but had no improvement of symptoms. Patient also c/o sharp 9/10 back pain that has been present since . En route to the hospital EMS noted pt was in A-fib w/ RVR in the 130s and -- subsequently gave 15mg Cardizem with no change in status. In the ED, patient given another 15mg Cardizem IV, Lasix 40mg IV, medrol 125mg and LR 250mL bolus d/t BP drop to 80s/50s with improvement of symptoms. On ROS denies CP/ DYER/ fevers/ chills/ nausea/ vomiting/ urinary changes/bowel changes/ wt changes. ER course was notable for: (1) CXR: congestion R>L & pleural effusions (2) Chest CTA: No PE, no aortic aneurysm dissection (3) tachy to 135; afebrile Hospital course Pt was initially admitted to ICU-- was on Cardizem drip rate controlled Seen by Cardiology found to have afib started on Eliquis tolerating well PT eval done-- she is walking well was on iv antibiotics-- for presumed UTI-- Urine cultures and blood cultures came back negative will dc antibiotics pt better stable for dc home on po Eliquis she had an episode of hematuria-- now no further episodes-->no further work up per Urology Condition: Guarded - Instructions Referrals: Ashley Calderón MD [Primary Care Provider] - Rajat Santos MD [Staff Physician] - Disposition: HOME - Home Medications Comprehensive Discharge Medication List: Ambulatory Orders Acetaminophen [Tylenol .Regular Strength -] 650 mg PO Q6H PRN #0 tablet Pantoprazole Sodium [Protonix -] 40 mg PO BID #30 tablet.ec 06/23/13 Amlodipine Besylate [Norvasc -] 10 mg PO DAILY 06/18/19
--- NOTE | 2019-06-24 15:06 | PN ---
Progress Note, Physician History of Present Illness: Pt seen and examined at bedside. She is awake and alert. She denies shortness of breath. - Current Medication List Current Medications: Active Medications Acetaminophen (Tylenol -) 650 mg PO Q6H PRN PRN Reason: PAIN LEVEL 6-10 Last Admin: 06/24/19 11:32 Dose: 650 mg Apixaban (Eliquis -) 5 mg PO BID [facility] Last Admin: 06/24/19 09:23 Dose: 5 mg Docusate Sodium (Colace -) 100 mg PO BID [facility] Last Admin: 06/24/19 09:23 Dose: Not Given Guaifenesin (Diabetic Tussin Dm -) 10 ml PO Q4H PRN PRN Reason: COUGH Last Admin: 06/23/19 22:14 Dose: 10 ml Ceftriaxone Sodium 1 gm/ (Dextrose) 50 mls @ 100 mls/hr IVPB DAILY [facility]; Protocol Last Admin: 06/24/19 09:23 Dose: 100 mls/hr Metoprolol Succinate (Toprol Xl -) 50 mg PO BID [facility] Last Admin: 06/24/19 09:23 Dose: 50 mg Pantoprazole Sodium (Protonix -) 40 mg PO DAILY [facility] Last Admin: 06/24/19 09:23 Dose: 40 mg Polyethylene Glycol (Miralax (For Daily Use) -) 17 gm PO BID [facility] Last Admin: 06/24/19 09:23 Dose: Not Given - Objective Vital Signs: Vital Signs Temperature 98.4 F 06/24/19 08:38 Pulse Rate 105 H 06/24/19 08:38 Respiratory Rate 20 06/24/19 08:38 Blood Pressure 119/79 06/24/19 08:38 O2 Sat by Pulse Oximetry (%) 95 06/24/19 08:02 Constitutional: Yes: Calm Eyes: Yes: Conjunctiva Clear HENT: Yes: Atraumatic Cardiovascular: Yes: S1, S2 Respiratory: Yes: CTA Bilaterally Gastrointestinal: Yes: Normal Bowel Sounds, Soft, Abdomen, Obese Genitourinary: Yes: WNL Musculoskeletal: Yes: WNL Edema: No Neurological: Yes: Oriented Psychiatric: Yes: Oriented Labs: CBC, BMP 06/23/19 06:14 06/24/19 06:06 INR, PTT INR Cancelled 06/17/19 20:17 Problem List - Problems (1) EUGENIO (acute kidney injury) Code(s): N17.9 - ACUTE KIDNEY FAILURE, UNSPECIFIED (2) Acute decompensated heart failure Code(s): I50.9 - HEART FAILURE, UNSPECIFIED (3) Rapid atrial fibrillation Code(s): I48.91 - UNSPECIFIED ATRIAL FIBRILLATION Assessment/Plan Current Medications Generic Name Dose Route Start Last Admin Trade Name Freq PRN Reason Stop Dose Admin Acetaminophen 650 mg 06/20/19 06:54 06/24/19 11:32 Tylenol - PO 650 mg Q6H PRN Administration PAIN LEVEL 6-10 Apixaban 5 mg 06/19/19 22:00 06/24/19 09:23 Eliquis - PO 5 mg BID SU Administration Docusate Sodium 100 mg 06/19/19 22:00 06/24/19 09:23 Colace - PO Not Given BID SU Guaifenesin 10 ml 06/19/19 18:40 06/23/19 22:14 Diabetic Tussin Dm - PO 10 ml Q4H PRN Administration COUGH Ceftriaxone Sodium 1 gm/ 50 mls @ 100 mls/hr 06/23/19 12:30 06/24/19 09:23 Dextrose IVPB 100 mls/hr DAILY SU Administration Protocol Metoprolol Succinate 50 mg 06/23/19 12:30 06/24/19 09:23 Toprol Xl - PO 50 mg BID SU Administration Pantoprazole Sodium 40 mg 06/24/19 10:00 06/24/19 09:23 Protonix - PO 40 mg DAILY SU Administration Polyethylene Glycol 17 gm 06/19/19 22:00 06/24/19 09:23 Miralax (For Daily Use) - PO Not Given BID SU Impression 1. EUGENIO 2. hematuria 3. a-fib 4. asthma 5. HTN 6. hx DVT Plan - renal function stable - lasix prn - will need outpt follow up - avoid nsaids - avoid nephrotoxins
[2019-06-24 16:21] VITALS: BMI 25.3
[2019-06-24 18:23] VITALS: BP 101/47; PULSE 72; TEMP 97.4
== END 2019-06-24 18:29 | disposition home or self-care (01) | DRG 308 ==
LOC: JER 19:41 → JERBED 23:06 → JICU 06-18 03:13 → J4S 06-19 18:12
PROVIDERS: ADMIT Internal Medicine; ATTEND Internal Medicine
DX: I48.91 Unspecified atrial fibrillation (principal); J96.01 Acute respiratory failure with hypoxia; I50.33 Acute on chronic diastolic (congestive) heart failure; N17.9 Acute kidney failure, unspecified; E46 Unspecified protein-calorie malnutrition; N39.0 Urinary tract infection, site not specified; I11.0 Hypertensive heart disease with heart failure; K21.9 Gastro-esophageal reflux disease without esophagitis; E78.00 Pure hypercholesterolemia, unspecified; E88.09 Other disorders of plasma-protein metabolism, not elsewhere classified; I27.21 Secondary pulmonary arterial hypertension; R00.0 Tachycardia, unspecified; M54.9 Dorsalgia, unspecified; J45.909 Unspecified asthma, uncomplicated; R31.9 Hematuria, unspecified; I08.0 Rheumatic disorders of both mitral and aortic valves; Z86.718 Personal history of other venous thrombosis and embolism; Z96.642 Presence of left artificial hip joint; Z96.652 Presence of left artificial knee joint; Z87.11 Personal history of peptic ulcer disease; Z79.01 Long term (current) use of anticoagulants; Z68.25 Body mass index [BMI] 25.0-25.9, adult
CPT/HCPCS: 36415; 36600; 71045-TC-FY; 71275-TC; 76775-TC; 76856-TC; 80048; 80053; 81003; 82375; 82436; 82550; 82565; 82803; 83050; 83605; 83735; 83880; 84100; 84133; 84300; 84443; 84484; 85025; 85027; 87086; 87899; 93005; 93010; 93306-TC; 93970-TC; 94660; 94761; 97116-GP; 97162-GP; 99285-25

== ENCOUNTER 2019-11-19 09:24 | Emergency (ER) | payer OTHER ==
[2019-11-19 09:56] VITALS: TEMP 98.1; BMI 25.7
[2019-11-19] MEDS ORDERED: ACETAMINOPHEN 500 MG TABLET (FP) PO ONE (10:02)
[2019-11-19] MEDS ORDERED: morphine CARPU-JECT 2 MG/1 ML DISP.SYRIN IVPUSH ONE (10:06)
--- NOTE | 2019-11-19 10:15 | PDOC ---
Documentation entered by Alek Bustamante SCRIBE, acting as scribe for Jacklyn Hammond MD. Jacklyn Hammond MD: This documentation has been prepared by the Dianna singh Elijah, SCRIBE, under my direction and personally reviewed by me in its entirety. I confirm that the documentation accurately reflects all work, treatment, procedures, and medical decision making performed by me. History of Present Illness - General Stated Complaint: FALL History Source: Patient Exam Limitations: No Limitations - History of Present Illness Initial Comments: 11/19/19 10:06 Patient is an 79 year old female with a significant past medical history of a.fib on elequis, HTN, GERD, Hypercholesterolemia, left hip replacement, and left knee replacement who present today s/p fall x11 hours ago. Patient reports that she went to the bathroom and while making her way back into her bedroom she tripped, fell and hit the left side of her head, left arm, left hip and left knee. Patient was unable to move throughout the night until this morning and at this time reports body pain throughout. Patient denies LOC and SOB. Allergies: NKA PCP: Dr. Calderón 11/19/19 10:14 Past History - Past Medical History Allergies/Adverse Reactions: Allergies Allergy/AdvReac Type Severity Reaction Status Date / Time No Known Allergies Allergy Verified 06/17/19 19:42 Home Medications: Ambulatory Orders Acetaminophen [Tylenol .Regular Strength -] 650 mg PO Q6H PRN #0 tablet Apixaban [Eliquis -] 5 mg PO BID #60 tablet 06/24/19 Docusate Sodium [Colace -] 100 mg PO BID #30 capsule 06/24/19 Metoprolol Succinate [Toprol XL -] 50 mg PO BID #60 tab.sr.24h 06/24/19 Pantoprazole Sodium [Protonix -] 40 mg PO DAILY #30 tablet.ec 06/24/19 Polyethylene Glycol 3350 [Miralax 119 gm Btl -] 17 gm PO BID #14 bottle Acetaminophen [Tylenol] 650 mg PO QID PRN #20 tablet 11/19/19 Asthma: Yes COPD: No GI Disorders: Yes (GERD) HTN: Yes Hypercholesterolemia: Yes - Surgical History Orthopedic Surgery: (LT HIP SURGERY, LT KNEE REPLACEMENT) - Immunization History Immunization Up to Date: Yes - Psycho Social/Smoking Cessation Hx Smoking Status: No Smoking History: Never smoked Number of Cigarettes Smoked Daily: 0 Hx Alcohol Use: No Drug/Substance Use Hx: No Substance Use Type: None Hx Substance Use Treatment: No Review of Systems - Review of Systems Comments:: 11/19/19 10:08 GENERAL/CONSTITUTIONAL: No fever or chills. No weakness. HEAD, EYES, EARS, NOSE AND THROAT: No change in vision. No ear pain or discharge. No sore throat. CARDIOVASCULAR: No shortness of breath. RESPIRATORY: No cough, wheezing, or hemoptysis. GASTROINTESTINAL: No nausea, vomiting, diarrhea or constipation. GENITOURINARY: No dysuria, frequency, or change in urination. MUSCULOSKELETAL: +Left facial, arm, and leg pain SKIN: No rash NEUROLOGIC: No headache, vertigo, loss of consciousness, or change in strength/ sensation. ENDOCRINE: No increased thirst. No abnormal weight change. HEMATOLOGIC/LYMPHATIC: No anemia, easy bleeding, or history of blood clots. ALLERGIC/IMMUNOLOGIC: No hives or skin allergy. *Physical Exam - Vital Signs Last Vital Signs Temp Pulse Resp BP Pulse Ox 98.1 F 103 H 20 138/105 H 98 11/19/19 09:50 11/19/19 09:50 11/19/19 09:50 11/19/19 09:50 11/19/19 09:50 - Physical Exam 11/19/19 10:11 GENERAL: Awake, alert, and fully oriented, in no acute distress HEAD:+ Periorbital Ecchymosis on the left side EYES: +Subconjunctival Hemorrhage Left Eye ENT: Auricles normal inspection, hearing grossly normal, nares patent, oropharynx clear without exudates. Moist mucosa NECK: Normal ROM, supple, no lymphadenopathy, JVD, or masses LUNGS: Breath sounds equal, clear to auscultation bilaterally. No wheezes, and no crackles BACK: No midline and C-Spine Tenderness HEART: Regular rate and rhythm, normal S1 and S2, no murmurs, rubs or gallops ABDOMEN: Soft, nontender, normoactive bowel sounds. No guarding, no rebound. No masses EXTREMITIES: +Left Wrist Deformity +Ecchymosis Lateral Left Knee, full ROM, + Left Leg Shortened NEUROLOGICAL: Cranial nerves II through XII grossly intact. Normal speech, normal gait SKIN: Warm, Dry, normal turgor, no rashes or lesions noted ED Treatment Course - LABORATORY CBC & Chemistry Diagram: 11/19/19 10:29 11/19/19 10:29 - RADIOLOGY Radiology Studies Ordered: Category Date Time Status CERVICAL SPINE CT W/O CONTR [CT] Stat CT Scan 11/19/19 10:[address] W/O CONTRAST [CT] Stat CT Scan 11/19/19 10:[address] WITHOUT CONTRAST [CT] Stat CT Scan 11/19/19 09:59 Ordered CHEST PA & LAT [RAD] Stat Radiology 11/19/19 10:00 Ordered ELBOW-LEFT [RAD] Stat Radiology 11/19/19 10:01 Ordered FOREARM- LEFT [RAD] Stat Radiology 11/19/19 10:01 Ordered HIP & PELVIS-LEFT [RAD] Stat Radiology 11/19/19 10:05 Ordered HUMERUS-LEFT [RAD] Stat Radiology 11/19/19 10:01 Ordered KNEE 3 POS-LEFT [RAD] Stat Radiology 11/19/19 10:05 Ordered LEG TIB/FIB-LEFT [RAD] Stat Radiology 11/19/19 10:05 Ordered SHOULDER-LEFT [RAD] Stat Radiology 11/19/19 10:01 Ordered WRIST W/HAND-LEFT* [RAD] Stat Radiology 11/19/19 10:01 Ordered Medical Decision Making - Medical Decision Making 11/19/19 10:14 79yoF hx of a.fib on elequis, HTN, DM, L hip/knee replacements p/w trip and fall at home overnight. Down > 8h. Multiple L sided injuries. - rads, cts - labs - pain control - reeval and dispo per results. 11/19/19 16:39 Fracture reduced and splinted. Pt placed in sugar tong splint 2/2 concern for ? additional radial neck fracture. DC home w/ f/u w/ Dr. Sethi. Discharge - Discharge Information Problems reviewed: Yes Clinical Impression/Diagnosis: Radial fracture Condition: Good Disposition: HOME - Additional Discharge Information Prescriptions: Acetaminophen [Tylenol] 650 mg PO QID PRN #20 tablet PRN Reason: Pain - Follow up/Referral Referrals: Ashley Calderón MD [Primary Care Provider] - - Patient Discharge Instructions Patient Printed Discharge Instructions: How to Use a Sling Additional Instructions: Keep cast clean and dry. Please call Dr. Sethi's office tomorrow morning to schedule an appointment for evaluation and treatment of your fracture. You have a broken wrist and a possible break near the head of the radius (near the elbow). Keep your arm in the sling except when showering. prescriptions for pain medicine sent to the pharmacy. Be careful at home. - Post Discharge Activity
[2019-11-19] MEDS ORDERED: SODIUM CHLORIDE 0.9% 500 ML INFUS.BAG IV ONE (10:16)
[2019-11-19 10:48] LABS: BASO % 0.7 % (0-2.0); EOS % 0.1 % (0-4.5); HEMOGLOBIN 10.7 GM/dL (10.7-15.3); LYMPH % 20.6 % (8-40); MCH 31.9 pg (25.7-33.7); MCHC 33.4 g/dl (32.0-36.0); MEAN CELL VOLUME 95.5 fl (80-96); MEAN PLT VOLUME 8.4 fl (7.5-11.1); MONO % 13.1 % (3.8-10.2); NEUT % 65.5 % (42.8-82.8); PLATELET COUNT 200 K/MM3 (134-434); RBC 3.35 M/mm3 (3.60-5.2); RDW 15.3 % (11.6-15.6); WHITE BLOOD COUNT 6.5 K/mm3 (4.0-10.0)
[2019-11-19 11:05] LABS: INR 1.23 (0.83-1.09); PROTHROMBIN TIME (PATIENT) 14.6 SEC (9.7-13.0)
[2019-11-19 11:08] LABS: ACTIVATED PTT 37.1 SECONDS (25.2-36.5)
[2019-11-19 11:11] LABS: ALBUMIN 3.4 g/dl (3.4-5.0); BILIRUBIN,TOTAL 1.2 mg/dL (0.2-1); BLOOD UREA NITROGEN 21.1 mg/dL (7-18); CALCIUM 9.4 mg/dL (8.5-10.1); CREATININE 1.1 mg/dL (0.55-1.3); POTASSIUM 4.4 mmol/L (3.5-5.1); TOT PROT 6.7 g/dl (6.4-8.2)
[2019-11-19] MEDS ORDERED: MORPHINE SULFATE 2 MG/ML VIAL ONE (11:45)
[2019-11-19] MEDS ORDERED: LIDOCAINE HCL 2% (50ML VIAL) NR ONE (12:12)
--- NOTE | 2019-11-19 12:31 | EKG ---
Test Reason : Blood Pressure : / mmHG Vent. Rate : 110 BPM Atrial Rate : 110 BPM P-R Int : 000 ms QRS Dur : 070 ms QT Int : 344 ms P-R-T Axes : 000 012 006 degrees QTc Int : 465 ms ATRIAL FIBRILLATION WITH RAPID VENTRICULAR RESPONSE CANNOT RULE OUT ANTERIOR INFARCT , AGE UNDETERMINED ABNORMAL ECG Confirmed by MD Nixon, Chidi ([id number]) on 11/19/2019 12:30:54 PM Referred By: Confirmed By:Chidi Alicea MD
[2019-11-19] MEDS ORDERED: LIDOCAINE HCL 2% (20ML MULTI-DOSE VIAL) ONE (13:46)
[2019-11-19 17:53] VITALS: BP 109/74; PULSE 100
== END 2019-11-19 17:30 | disposition home or self-care (01) ==
LOC: JER 09:24
PROC: 0PSJXZZ Reposition Left Radius, External Approach (ICD-10-PCS; principal; 2019-11-19)
PROC: 3E033NZ Introduction of Analgesics, Hypnotics, Sedatives into Peripheral Vein, Percutaneous Approach (ICD-10-PCS; 2019-11-19)
DX: S62.102A Fracture of unspecified carpal bone, left wrist, initial encounter for closed fracture (principal); I48.91 Unspecified atrial fibrillation; I10 Essential (primary) hypertension; K21.9 Gastro-esophageal reflux disease without esophagitis; E78.5 Hyperlipidemia, unspecified; Z79.01 Long term (current) use of anticoagulants; Y92.89 Other specified places as the place of occurrence of the external cause; W18.39XA Other fall on same level, initial encounter; Y93.89 Activity, other specified; Z96.652 Presence of left artificial knee joint; Z96.642 Presence of left artificial hip joint
CPT/HCPCS: 25605; 36415; 70450-TC; 70486-TC; 71046-TC-FY; 72125-TC; 73030-TC-LT-FY; 73060-TC-LT-FY; 73070-TC-LT-FY; 73090-TC-LT-FY; 73110-TC-LT-FY; 73130-TC-LT-FY; 73523-TC-FY; 73562-TC-LT-FY; 73590-TC-LT-FY; 80053; 82550; 82553; 85025; 85610; 85730; 93005; 93010; 96374; 99285-25